=== PATIENT | female | born 1950 | race Caucasian/White ===

== ENCOUNTER 2020-10-23 13:51 | Observation (INO) ==
[2020-10-23] MEDS ORDERED: methylPREDNISolone SOD SUC 125 MG/2 ML VIAL IV STA (14:26)
[2020-10-23] MEDS ORDERED: ALBUTEROL/IPRATROPIUM 3 ML NEB RESP TX STA (14:26)
[2020-10-23 14:43] LABS: Basophils # 0.1 10*3/uL (0.0-0.2); Eosinophils # 0.1 10*3/uL (0.0-0.87); Eosinophils % 1.3 % (0.00-10.9); Hematocrit 48.4 VOL% (35.7-47.0); Hemoglobin 15.2 GM/DL (12.0-16.0); Immature Granulocytes % 0.3 %; Immature Granulocytes Absolute 0.02 #; Lymphocytes # 1.8 10*3/uL (1.4-4.0); Lymphocytes % 23.8 % (21.3-54.2); Mean Corpuscular HGB Conc 31.4 GM/DL (32-36); Mean Corpuscular Volume 88.3 FL (87-102); Mean Platelet Volume 9.9 FL (9.6-12.0); Monocytes % 10.2 % (1.7-12.7); Neutrophils % 63.4 % (38.7-73.9); Platelet Count 238 T/CUMM (130-400); Red Blood Count 5.48 MC/CUMM (3.8-5.5); Red Cell Distribution Width 13.5 % (9.3-17.3); White Blood Count 7.7 T/CUMM (4-12)
[2020-10-23 15:05] LABS: Albumin 3.6 G/DL (3.4-5.0); Bilirubin,Total 0.4 MG/DL (0.2-1.0); Calcium 9.3 MG/DL (8.5-10.1); Osmolality,Calculated 267.1 MOS/KG (273-304)
[2020-10-23] MEDS ORDERED: cefTRIAXone 1,000 MG in SODIUM CHLORIDE 0.9% 100 ML IV STA (15:47)
[2020-10-23] MEDS ORDERED: ONDANSETRON 4 MG/2 ML VIAL IV PRN (15:49)
[2020-10-23] MEDS ORDERED: ACETAMINOPHEN 325 MG TABLET PO PRN (15:49)
[2020-10-23] MEDS ORDERED: AZELASTINE NASAL 137 MCG/SPRAY 30 ML BOTTLE BOTH NARES PRN (19:17)
[2020-10-23] MEDS ORDERED: [UNRECOGNIZED DRUG - OTHER] INH PRN (19:17)
[2020-10-23] MEDS ORDERED: guaiFENesin/DM ER 600-30 MG TABLET PO PRN (19:17)
[2020-10-23] MEDS ORDERED: ALBUTEROL 2.5 MG/3 ML NEB RESP TX PRN (19:17)
[2020-10-23] MEDS ORDERED: TIOTROPIUM BROMIDE INH PRN (19:17)
[2020-10-23] MEDS ORDERED: methylPREDNISolone SOD SUC 40 MG/1 ML VIAL IV ONE (20:15)
[2020-10-23] MEDS: ALBUTEROL/IPRATROPIUM 3 ML NEB RESP TX SCH (20:15)
[2020-10-23] MEDS ORDERED: cloNIDine 0.1 MG TABLET PO PRN (20:17)
[2020-10-23] MEDS: ZALEPLON 5 MG CAPSULE PO SCH (21:13)
[2020-10-23] MEDS: DOCUSATE SODIUM 100 MG CAPSULE PO SCH (21:13)
[2020-10-23] MEDS: ATORVASTATIN 10 MG TABLET PO SCH (21:14)
[2020-10-23] MEDS: ALPRAZolam 0.5 MG TABLET PO SCH (21:14)
[2020-10-24] MEDS: ALBUTEROL/IPRATROPIUM 3 ML NEB RESP TX SCH ×4 (01:51→19:25)
[2020-10-24] MEDS: methylPREDNISolone SOD SUC 40 MG/1 ML VIAL IV SCH ×4 (05:45→21:25)
[2020-10-24] MEDS: LEVOTHYROXINE 75 MCG TABLET PO SCH (05:46)
[2020-10-24] MEDS: ASPIRIN 325 MG TABLET PO SCH (08:57)
[2020-10-24] MEDS: hydroCHLOROthiazide 12.5 MG CAPSULE PO SCH (08:58)
[2020-10-24] MEDS: DOCUSATE SODIUM 100 MG CAPSULE PO SCH ×2 (08:58→21:19)
[2020-10-24] MEDS: ESCITALOPRAM 10 MG TABLET PO SCH (08:58)
[2020-10-24] MEDS: ALPRAZolam 0.5 MG TABLET PO SCH ×2 (08:58→21:20)
[2020-10-24] MEDS ORDERED: PANTOPRAZOLE 40 MG TABLET PO SCH (09:00)
[2020-10-24] MEDS ORDERED: METOPROLOL SUCCINATE XL 25 MG TABLET PO SCH (09:00)
[2020-10-24] MEDS: amLODIPine 5 MG TABLET PO SCH (09:02)
[2020-10-24] MEDS: NEBIVOLOL 5 MG TABLET PO SCH (09:30)
[2020-10-24] MEDS: OLMESARTAN 5 MG TABLET PO SCH (09:31)
[2020-10-24] MEDS: cefTRIAXone 1,000 MG in SYRINGE 1 EACH IV SCH (09:38)
[2020-10-24] MEDS: MONTELUKAST 10 MG TABLET PO SCH (10:49)
[2020-10-24] MEDS: ALUMINUM/MAGNES/SIMETH MAX STR 30 ML UDCUP PO SCH ×3 (10:49→21:18)
[2020-10-24 11:31] LABS: Free T4 (Free Thyroxine) 1.24 NG/DL (0.76-1.46); Thyroid Stimulating Hormone 0.162 uIU/ml (0.358-3.74)
[2020-10-24] MEDS: ATORVASTATIN 10 MG TABLET PO SCH (21:19)
[2020-10-24] MEDS: ZALEPLON 5 MG CAPSULE PO SCH (21:19)
[2020-10-24] MEDS: PANTOPRAZOLE 40 MG TABLET PO SCH (21:21)
[2020-10-25] MEDS: ALBUTEROL/IPRATROPIUM 3 ML NEB RESP TX SCH ×4 (00:21→20:17)
[2020-10-25] MEDS: LEVOTHYROXINE 75 MCG TABLET PO SCH (05:57)
[2020-10-25] MEDS: methylPREDNISolone SOD SUC 40 MG/1 ML VIAL IV SCH ×3 (05:57→21:15)
[2020-10-25 06:47] LABS: Basophils % 0.1 % (0.0-0.8); Hematocrit 44.6 VOL% (35.7-47.0); Hemoglobin 14.2 GM/DL (12.0-16.0); Immature Granulocytes % 0.7 %; Immature Granulocytes Absolute 0.09 #; Lymphocytes # 0.9 10*3/uL (1.4-4.0); Lymphocytes % 6.9 % (21.3-54.2); Mean Corpuscular HGB Conc 31.8 GM/DL (32-36); Mean Corpuscular Volume 87.1 FL (87-102); Mean Platelet Volume 10.1 FL (9.6-12.0); Neutrophils % 86.3 % (38.7-73.9); Platelet Count 222 T/CUMM (130-400); Red Blood Count 5.12 MC/CUMM (3.8-5.5); Red Cell Distribution Width 13.9 % (9.3-17.3); White Blood Count 12.6 T/CUMM (4-12)
[2020-10-25 07:07] LABS: Calcium 8.6 MG/DL (8.5-10.1); Osmolality,Calculated 274.1 MOS/KG (273-304)
[2020-10-25] MEDS: amLODIPine 5 MG TABLET PO SCH (10:54)
[2020-10-25] MEDS: ALUMINUM/MAGNES/SIMETH MAX STR 30 ML UDCUP PO SCH ×4 (10:54→21:14)
[2020-10-25] MEDS: NEBIVOLOL 5 MG TABLET PO SCH (10:55)
[2020-10-25] MEDS: ESCITALOPRAM 10 MG TABLET PO SCH (10:55)
[2020-10-25] MEDS: hydroCHLOROthiazide 12.5 MG CAPSULE PO SCH (10:55)
[2020-10-25] MEDS: MONTELUKAST 10 MG TABLET PO SCH (10:55)
[2020-10-25] MEDS: PANTOPRAZOLE 40 MG TABLET PO SCH ×2 (10:55→21:15)
[2020-10-25] MEDS: DOCUSATE SODIUM 100 MG CAPSULE PO SCH ×2 (10:55→21:14)
[2020-10-25] MEDS: ALPRAZolam 0.5 MG TABLET PO SCH ×2 (10:56→21:15)
[2020-10-25] MEDS: ASPIRIN 325 MG TABLET PO SCH (10:56)
[2020-10-25] MEDS: OLMESARTAN 5 MG TABLET PO SCH (10:56)
[2020-10-25] MEDS: cefTRIAXone 1,000 MG in SYRINGE 1 EACH IV SCH (11:08)
[2020-10-25] MEDS: ZALEPLON 5 MG CAPSULE PO SCH (21:15)
[2020-10-25] MEDS: ATORVASTATIN 10 MG TABLET PO SCH (21:15)
[2020-10-26] MEDS: ALBUTEROL/IPRATROPIUM 3 ML NEB RESP TX SCH ×3 (01:38→14:01)
[2020-10-26] MEDS: methylPREDNISolone SOD SUC 40 MG/1 ML VIAL IV SCH ×2 (06:15→12:26)
[2020-10-26] MEDS: LEVOTHYROXINE 75 MCG TABLET PO SCH (06:20)
[2020-10-26] MEDS: amLODIPine 5 MG TABLET PO SCH (08:15)
[2020-10-26] MEDS: ESCITALOPRAM 10 MG TABLET PO SCH (08:15)
[2020-10-26] MEDS: ASPIRIN 325 MG TABLET PO SCH (08:15)
[2020-10-26] MEDS: hydroCHLOROthiazide 12.5 MG CAPSULE PO SCH (08:15)
[2020-10-26] MEDS: PANTOPRAZOLE 40 MG TABLET PO SCH (08:15)
[2020-10-26] MEDS: OLMESARTAN 5 MG TABLET PO SCH (08:15)
[2020-10-26] MEDS: NEBIVOLOL 5 MG TABLET PO SCH (08:16)
[2020-10-26] MEDS: MONTELUKAST 10 MG TABLET PO SCH (08:16)
[2020-10-26] MEDS: cefTRIAXone 1,000 MG in SYRINGE 1 EACH IV SCH (08:16)
[2020-10-26] MEDS: ALPRAZolam 0.5 MG TABLET PO SCH (08:16)
[2020-10-26] MEDS: DOCUSATE SODIUM 100 MG CAPSULE PO SCH (08:16)
[2020-10-26] MEDS: ALUMINUM/MAGNES/SIMETH MAX STR 30 ML UDCUP PO SCH ×2 (08:17→11:31)
[2020-10-26 13:18] VITALS: BP 160/64
== END 2020-10-26 16:35 | disposition home or self-care (01) ==
LOC: N.TELEN 13:51 → N.ED 13:51 → N.TELEN 18:28
PROVIDERS: ADMIT Family Medicine; ATTEND Family Medicine

== ENCOUNTER 2020-12-08 07:34 | Inpatient (IN) ==
[2020-12-08] MEDS ORDERED: methylPREDNISolone SOD SUC 125 MG/2 ML VIAL IV STA (07:51)
[2020-12-08] MEDS ORDERED: ALBUTEROL/IPRATROPIUM 3 ML NEB RESP TX STA (07:51)
[2020-12-08 08:21] LABS: ABG HCO3 34.4 MMOL/L (20-26); ABG Oxygen Saturation 87.3 % (95-100); ABG PCO2 56.3 MM HG (35-48); ABG PH 7.435 (7.35-7.45); ABG PO2 53.4 MM HG (80-95); ABG TCO2 32.6 MMOL/L (23-27)
[2020-12-08 08:49] LABS: Albumin 3.2 G/DL (3.4-5.0); Bilirubin,Total 0.9 MG/DL (0.2-1.0); Calcium 8.1 MG/DL (8.5-10.1); Osmolality,Calculated 209.4 MOS/KG (273-304); Total Protein 6.2 G/DL (6.4-8.2)
[2020-12-08 08:59] LABS: Potassium 2.8 MMOL/L (3.5-5.1)
[2020-12-08 09:09] LABS: Basophils % 0.3 % (0.0-0.8); Eosinophils # 0.1 10*3/uL (0.0-0.87); Eosinophils % 0.5 % (0.00-10.9); Hematocrit 39.8 VOL% (35.7-47.0); Hemoglobin 14.9 GM/DL (12.0-16.0); Immature Granulocytes % 1.7 %; Immature Granulocytes Absolute 0.26 #; Lymphocytes # 0.8 10*3/uL (1.4-4.0); Lymphocytes % 5.5 % (21.3-54.2); Mean Corpuscular HGB Conc 37.4 GM/DL (32-36); Mean Corpuscular Volume 75.2 FL (87-102); Monocytes % 8.1 % (1.7-12.7); Neutrophils % 83.9 % (38.7-73.9); Platelet Count 273 T/CUMM (130-400); Red Blood Count 5.29 MC/CUMM (3.8-5.5); White Blood Count 15.2 T/CUMM (4-12)
[2020-12-08] MEDS ORDERED: cefTRIAXone 1,000 MG in SODIUM CHLORIDE 0.9% 100 ML IV STA (09:36)
[2020-12-08] MEDS ORDERED: SODIUM CHLORIDE 0.9% 500 ML IV STA (10:05)
[2020-12-08 10:19] LABS: Bilirubin,Urine Negative (Negative); Blood, Urine Small mg/dL (Negative); Glucose,Urine (UA) Negative (Negative); Ketones,Urine Negative (Negative); Nitrite,Urine Negative (Negative); Protein,Urine 100 MG/DL; RBC,Urine 3 /HPF (0-4); Squamous Epithelial Cell,Urine Occasional /HPF (0-10); Urine Appearance CLEAR (Clear); Urine Color Yellow (Yellow); Urine Specific Gravity 1.012 (1.001-1.035); Urine Urobilinogen < 2.0 EU/DL (0.2-1.0); WBC,Urine 2 /HPF (0-6)
[2020-12-08 10:24] LABS: Calcium 8.5 MG/DL (8.5-10.1); Osmolality,Calculated 211.4 MOS/KG (273-304); Potassium 2.9 MMOL/L (3.5-5.1)
[2020-12-08] MEDS ORDERED: SODIUM CHLORIDE 0.9% 1,000 ML IV SCH (10:30)
[2020-12-08] MEDS: ALBUTEROL/IPRATROPIUM 3 ML NEB RESP TX SCH ×4 (11:00→19:49)
[2020-12-08] MEDS ORDERED: AZELASTINE NASAL 137 MCG/SPRAY 30 ML BOTTLE BOTH NARES PRN (11:17)
[2020-12-08] MEDS ORDERED: IPRATROPIUM 500 MCG/2.5 ML NEB RESP TX PRN ×2 (11:31→12:00)
[2020-12-08] MEDS ORDERED: TIOTROPIUM 18 MCG INHALATION CAP 5/BOX INH PRN (12:00)
[2020-12-08] MEDS ORDERED: ESCITALOPRAM 10 MG TABLET PO SCH (12:00)
[2020-12-08] MEDS: ALUMINUM/MAGNES/SIMETH MAX STR 30 ML UDCUP PO SCH ×3 (12:15→21:35)
[2020-12-08] MEDS ORDERED: POTASSIUM CHLORIDE RIDER 10 MEQ in PREMIX 1 EACH IV PRN (12:25)
[2020-12-08] MEDS ORDERED: AZITHROMYCIN INJ 500 MG in SODIUM CHLORIDE 0.9% 250 ML IV ONE (12:31)
[2020-12-08] MEDS ORDERED: SODIUM CHLORIDE 0.9% 250 ML IV ONE (12:58)
[2020-12-08] MEDS ORDERED: POTASSIUM CHLORIDE INJ 20 MEQ in SODIUM CHLORIDE 0.9% 1,000 ML IV SCH (13:00)
[2020-12-08] MEDS: methylPREDNISolone SOD SUC 125 MG/2 ML VIAL IV SCH ×3 (13:10→23:57)
[2020-12-08] MEDS: SODIUM CHLOR 0.9% KCL 20 MEQ 20 MEQ/1,000 ML BAG IV SCH (13:30)
[2020-12-08 13:40] LABS: Calcium 8.2 MG/DL (8.5-10.1); Osmolality,Calculated 208.6 MOS/KG (273-304); Potassium 3.1 MMOL/L (3.5-5.1)
[2020-12-08] MEDS: ENOXAPARIN 40 MG/0.4 ML SYRINGE SUBCUT SCH (13:43)
[2020-12-08 14:16] LABS: ABG Base Excess 7.2 MMOL/L (-2.5-2.5); ABG HCO3 30.5 MMOL/L (20-26); ABG Oxygen Saturation 82.3 % (95-100); ABG PH 7.258 (7.35-7.45); ABG PO2 55.8 MM HG (80-95); ABG TCO2 34.5 MMOL/L (23-27)
[2020-12-08 14:20] LABS: ABG PCO2 87.4 MM HG (35-48)
[2020-12-08 15:53] LABS: ABG Base Excess 7.7 MMOL/L (-2.5-2.5); ABG HCO3 31.4 MMOL/L (20-26); ABG Oxygen Saturation 96.9 % (95-100); ABG PH 7.322 (7.35-7.45); ABG PO2 96.7 MM HG (80-95); ABG TCO2 32.6 MMOL/L (23-27)
[2020-12-08 15:55] LABS: ABG PCO2 71.5 MM HG (35-48)
[2020-12-08 18:40] LABS: Calcium 7.7 MG/DL (8.5-10.1); Osmolality,Calculated 214.2 MOS/KG (273-304); Potassium 2.6 MMOL/L (3.5-5.1)
[2020-12-08 19:49] LABS: ABG Base Excess 8.8 MMOL/L (-2.5-2.5); ABG HCO3 32.3 MMOL/L (20-26); ABG Oxygen Saturation 90.6 % (95-100); ABG PH 7.324 (7.35-7.45); ABG PO2 63.9 MM HG (80-95); ABG TCO2 33.8 MMOL/L (23-27)
[2020-12-08] MEDS ORDERED: ROCURONIUM 100 MG/10 ML VIAL IV ONE (20:00)
[2020-12-08] MEDS ORDERED: POTASSIUM CHLORIDE INJ 50 MEQ in SODIUM CHLORIDE 0.9% 500 ML IV ONE (20:00)
[2020-12-08] MEDS ORDERED: ETOMIDATE 20 MG/10 ML VIAL IV ONE (20:00)
[2020-12-08] MEDS: ATORVASTATIN 10 MG TABLET PO SCH (21:35)
[2020-12-08] MEDS ORDERED: LORazepam 2 MG/1 ML VIAL IV PRN (21:51)
[2020-12-08 22:22] LABS: ABG Base Excess 9.7 MMOL/L (-2.5-2.5); ABG HCO3 33.3 MMOL/L (20-26); ABG Oxygen Saturation 92.3 % (95-100); ABG PCO2 46.2 MM HG (35-48); ABG PH 7.484 (7.35-7.45); ABG PO2 59.1 MM HG (80-95); ABG TCO2 29.8 MMOL/L (23-27)
[2020-12-08 22:32] LABS: Calcium 7.9 MG/DL (8.5-10.1); Osmolality,Calculated 223.5 MOS/KG (273-304); Potassium 2.9 MMOL/L (3.5-5.1)
[2020-12-08] MEDS: MIDAZOLAM 100 MG in SODIUM CHLORIDE 0.9% 80 ML IV PRN (23:59)
[2020-12-09] MEDS ORDERED: NOREPINEPHRINE 8 MG in SODIUM CHLORIDE 0.9% 242 ML IV PRN (00:33)
[2020-12-09] MEDS ORDERED: NOREPINEPHRINE 4 MG/4 ML VIAL IV ONE (00:34)
[2020-12-09] MEDS: ALBUTEROL/IPRATROPIUM 3 ML NEB RESP TX SCH ×7 (00:41→23:50)
[2020-12-09 03:33] LABS: Calcium 7.9 MG/DL (8.5-10.1); Osmolality,Calculated 224.5 MOS/KG (273-304); Potassium 3.5 MMOL/L (3.5-5.1)
[2020-12-09 03:58] LABS: ABG Base Excess 9.6 MMOL/L (-2.5-2.5); ABG HCO3 33.3 MMOL/L (20-26); ABG Oxygen Saturation 95.7 % (95-100); ABG PCO2 42.1 MM HG (35-48); ABG PH 7.511 (7.35-7.45); ABG PO2 70.2 MM HG (80-95)
[2020-12-09] MEDS: SODIUM CHLOR 0.9% KCL 20 MEQ 20 MEQ/1,000 ML BAG IV SCH (04:49)
[2020-12-09] MEDS: methylPREDNISolone SOD SUC 125 MG/2 ML VIAL IV SCH ×3 (05:32→17:35)
[2020-12-09] MEDS ORDERED: cefTRIAXone 1,000 MG in SODIUM CHLORIDE 0.9% 100 ML IV SCH (08:00)
[2020-12-09] MEDS: ALUMINUM/MAGNES/SIMETH MAX STR 30 ML UDCUP PO SCH ×4 (08:01→22:58)
[2020-12-09] MEDS: MONTELUKAST 10 MG TABLET PO SCH (08:40)
[2020-12-09] MEDS: ASPIRIN 325 MG TABLET PO SCH (08:40)
[2020-12-09] MEDS: NICOTINE 21 MG/24 HR PATCH TRANSDERM SCH (08:40)
[2020-12-09] MEDS: LEVOTHYROXINE 75 MCG TABLET PO SCH (08:40)
[2020-12-09] MEDS: PANTOPRAZOLE 40 MG VIAL IV SCH (08:44)
[2020-12-09 08:47] LABS: Basophils % 0.1 % (0.0-0.8); Hematocrit 35.3 VOL% (35.7-47.0); Hemoglobin 12.5 GM/DL (12.0-16.0); Immature Granulocytes % 1.1 %; Immature Granulocytes Absolute 0.11 #; Lymphocytes # 0.4 10*3/uL (1.4-4.0); Lymphocytes % 4.2 % (21.3-54.2); Mean Corpuscular HGB Conc 35.4 GM/DL (32-36); Mean Corpuscular Volume 77.4 FL (87-102); Mean Platelet Volume 9.1 FL (9.6-12.0); Monocytes % 5.5 % (1.7-12.7); Neutrophils % 89.1 % (38.7-73.9); Platelet Count 231 T/CUMM (130-400); Red Blood Count 4.56 MC/CUMM (3.8-5.5); Red Cell Distribution Width 12.1 % (9.3-17.3); White Blood Count 10.2 T/CUMM (4-12)
[2020-12-09 08:59] LABS: Calcium 7.8 MG/DL (8.5-10.1); Potassium 3.3 MMOL/L (3.5-5.1)
[2020-12-09 09:31] LABS: Calcium 7.9 MG/DL (8.5-10.1); Osmolality,Calculated 231.9 MOS/KG (273-304); Potassium 3.4 MMOL/L (3.5-5.1)
[2020-12-09] MEDS: [UNRECOGNIZED DRUG - OTHER] PO SCH (09:34)
[2020-12-09] MEDS: POTASSIUM CHLORIDE 20 MEQ/15 ML UDCUP PER TUBE PRN ×3 (10:08→17:20)
[2020-12-09] MEDS: ENOXAPARIN 40 MG/0.4 ML SYRINGE SUBCUT SCH (10:09)
[2020-12-09] MEDS: DEXTROSE 5% IV SCH (12:59)
[2020-12-09] MEDS: AZITHROMYCIN IV SCH (12:59)
[2020-12-09 13:07] LABS: Calcium 8.2 MG/DL (8.5-10.1); Potassium 3.9 MMOL/L (3.5-5.1)
[2020-12-09 16:38] LABS: Calcium 7.9 MG/DL (8.5-10.1); Osmolality,Calculated 233.8 MOS/KG (273-304); Potassium 3.9 MMOL/L (3.5-5.1)
[2020-12-09] MEDS: MIDAZOLAM 100 MG in SODIUM CHLORIDE 0.9% 80 ML IV PRN (17:33)
[2020-12-09 20:58] LABS: Osmolality,Calculated 244.1 MOS/KG (273-304); Potassium 3.7 MMOL/L (3.5-5.1)
[2020-12-09] MEDS: ATORVASTATIN 10 MG TABLET PO SCH (22:58)
[2020-12-10] MEDS: methylPREDNISolone SOD SUC 125 MG/2 ML VIAL IV SCH ×5 (00:16→23:47)
[2020-12-10 01:19] LABS: Calcium 8.4 MG/DL (8.5-10.1); Osmolality,Calculated 241.2 MOS/KG (273-304); Potassium 3.7 MMOL/L (3.5-5.1)
[2020-12-10] MEDS: POTASSIUM CHLORIDE 20 MEQ/15 ML UDCUP PER TUBE PRN ×2 (01:56→08:39)
[2020-12-10] MEDS: ALBUTEROL/IPRATROPIUM 3 ML NEB RESP TX SCH ×6 (02:35→23:12)
[2020-12-10 04:12] LABS: ABG Base Excess 7.8 MMOL/L (-2.5-2.5); ABG HCO3 31.3 MMOL/L (20-26); ABG Oxygen Saturation 94.1 % (95-100); ABG PH 7.512 (7.35-7.45); ABG PO2 66.9 MM HG (80-95); ABG TCO2 32.6 MMOL/L (23-27)
[2020-12-10 05:15] LABS: Basophils % 0.1 % (0.0-0.8); Hematocrit 38.6 VOL% (35.7-47.0); Hemoglobin 13.4 GM/DL (12.0-16.0); Immature Granulocytes % 0.8 %; Lymphocytes # 0.4 10*3/uL (1.4-4.0); Lymphocytes % 3.6 % (21.3-54.2); Mean Corpuscular HGB Conc 34.7 GM/DL (32-36); Mean Corpuscular Volume 80.8 FL (87-102); Mean Platelet Volume 9.6 FL (9.6-12.0); Monocytes % 4.4 % (1.7-12.7); Neutrophils % 91.1 % (38.7-73.9); Platelet Count 233 T/CUMM (130-400); Red Blood Count 4.78 MC/CUMM (3.8-5.5); Red Cell Distribution Width 12.7 % (9.3-17.3); White Blood Count 12.1 T/CUMM (4-12)
[2020-12-10 05:29] LABS: Osmolality,Calculated 247.8 MOS/KG (273-304); Potassium 3.8 MMOL/L (3.5-5.1)
[2020-12-10 05:40] LABS: Band Neutrophils 2 % (0-10); Hypochromasia Slight; Lymphocytes 5 % (20-55); Microcytosis Slight; Platelet Estimate Adequate; Segmented Neutrophils 92 % (50-85); Total Cells Counted 100
[2020-12-10] MEDS: ALUMINUM/MAGNES/SIMETH MAX STR 30 ML UDCUP PO SCH ×4 (06:36→21:05)
[2020-12-10] MEDS: PANTOPRAZOLE 40 MG VIAL IV SCH (08:38)
[2020-12-10] MEDS: NICOTINE 21 MG/24 HR PATCH TRANSDERM SCH (08:39)
[2020-12-10] MEDS: LEVOTHYROXINE 75 MCG TABLET PO SCH (08:39)
[2020-12-10] MEDS: MONTELUKAST 10 MG TABLET PO SCH (08:39)
[2020-12-10] MEDS: ASPIRIN 325 MG TABLET PO SCH (08:39)
[2020-12-10] MEDS: [UNRECOGNIZED DRUG - OTHER] PO SCH (08:51)
[2020-12-10] MEDS ORDERED: cefTRIAXone 1,000 MG in SYRINGE 1 EACH IV SCH (09:00)
[2020-12-10] MEDS: ENOXAPARIN 40 MG/0.4 ML SYRINGE SUBCUT SCH (09:58)
[2020-12-10] MEDS: PIPERACILLIN/TAZOBACTAM 3,375 MG in SODIUM CHLORIDE 0.9% 100 ML IV SCH ×2 (10:01→17:15)
[2020-12-10 10:51] LABS: Free T4 (Free Thyroxine) 1.58 NG/DL (0.76-1.46); Thyroid Stimulating Hormone 0.067 uIU/ml (0.358-3.74)
[2020-12-10] MEDS: INSULIN REGULAR 100 UNIT/ML SUBCUT SCH ×3 (12:46→23:48)
[2020-12-10 13:39] LABS: Calcium 7.7 MG/DL (8.5-10.1); Osmolality,Calculated 248.9 MOS/KG (273-304); Potassium 4.4 MMOL/L (3.5-5.1)
[2020-12-10] MEDS: DEXTROSE 5% IV SCH (13:39)
[2020-12-10] MEDS: AZITHROMYCIN IV SCH (13:39)
[2020-12-10] MEDS: ATORVASTATIN 10 MG TABLET PO SCH (21:05)
[2020-12-11] MEDS: PIPERACILLIN/TAZOBACTAM 3,375 MG in SODIUM CHLORIDE 0.9% 100 ML IV SCH ×3 (01:08→17:45)
[2020-12-11] MEDS: ALBUTEROL/IPRATROPIUM 3 ML NEB RESP TX SCH ×6 (02:50→23:25)
[2020-12-11 04:00] LABS: Basophils % 0.1 % (0.0-0.8); Hematocrit 37.1 VOL% (35.7-47.0); Hemoglobin 12.2 GM/DL (12.0-16.0); Immature Granulocytes % 0.5 %; Immature Granulocytes Absolute 0.06 #; Lymphocytes # 0.2 10*3/uL (1.4-4.0); Lymphocytes % 1.8 % (21.3-54.2); Mean Corpuscular HGB Conc 32.9 GM/DL (32-36); Mean Corpuscular Volume 82.8 FL (87-102); Monocytes % 3.6 % (1.7-12.7); Platelet Count 244 T/CUMM (130-400); Red Blood Count 4.48 MC/CUMM (3.8-5.5); Red Cell Distribution Width 13.2 % (9.3-17.3); White Blood Count 11.6 T/CUMM (4-12)
[2020-12-11 04:01] LABS: ABG Base Excess 9.6 MMOL/L (-2.5-2.5); ABG HCO3 33.3 MMOL/L (20-26); ABG Oxygen Saturation 96.7 % (95-100); ABG PCO2 47.6 MM HG (35-48); ABG PH 7.472 (7.35-7.45); ABG PO2 79.3 MM HG (80-95); ABG TCO2 30.4 MMOL/L (23-27); Allen Test Positive; Pt O2 Delivery Device Ventilator
[2020-12-11 04:12] LABS: Calcium 7.6 MG/DL (8.5-10.1); Osmolality,Calculated 260.4 MOS/KG (273-304)
[2020-12-11 04:26] LABS: Band Neutrophils 1 % (0-10); Hypochromasia Slight; Lymphocytes 2 % (20-55); Microcytosis Slight; Platelet Estimate Adequate; Segmented Neutrophils 91 % (50-85); Total Cells Counted 100
[2020-12-11] MEDS: methylPREDNISolone SOD SUC 125 MG/2 ML VIAL IV SCH ×4 (05:40→23:35)
[2020-12-11] MEDS: INSULIN REGULAR 100 UNIT/ML SUBCUT SCH ×4 (05:41→23:35)
[2020-12-11] MEDS: PANTOPRAZOLE 40 MG VIAL IV SCH (08:23)
[2020-12-11] MEDS: LEVOTHYROXINE 75 MCG TABLET PO SCH (08:23)
[2020-12-11] MEDS: [UNRECOGNIZED DRUG - OTHER] PO SCH (08:23)
[2020-12-11] MEDS: MONTELUKAST 10 MG TABLET PO SCH (08:23)
[2020-12-11] MEDS: NICOTINE 21 MG/24 HR PATCH TRANSDERM SCH (08:23)
[2020-12-11] MEDS: ALUMINUM/MAGNES/SIMETH MAX STR 30 ML UDCUP PO SCH ×4 (08:23→21:07)
[2020-12-11] MEDS: ASPIRIN 325 MG TABLET PO SCH (08:23)
[2020-12-11] MEDS: ENOXAPARIN 40 MG/0.4 ML SYRINGE SUBCUT SCH (09:30)
[2020-12-11] MEDS ORDERED: SODIUM PHOSPHATE INJ 40 MMOL in SODIUM CHLORIDE 0.9% 250 ML IV ONE (11:00)
[2020-12-11] MEDS: DEXTROSE 5% IV SCH (13:49)
[2020-12-11] MEDS: AZITHROMYCIN IV SCH (13:49)
[2020-12-11] MEDS: MIDAZOLAM 100 MG in SODIUM CHLORIDE 0.9% 80 ML IV PRN (18:28)
[2020-12-11] MEDS: ATORVASTATIN 10 MG TABLET PO SCH (21:07)
[2020-12-12] MEDS: PIPERACILLIN/TAZOBACTAM 3,375 MG in SODIUM CHLORIDE 0.9% 100 ML IV SCH ×3 (01:27→19:03)
[2020-12-12] MEDS: ALBUTEROL/IPRATROPIUM 3 ML NEB RESP TX SCH ×6 (04:05→23:10)
[2020-12-12 04:45] LABS: Basophils % 0.1 % (0.0-0.8); Hematocrit 36.3 VOL% (35.7-47.0); Hemoglobin 11.9 GM/DL (12.0-16.0); Immature Granulocytes % 1.5 %; Immature Granulocytes Absolute 0.13 #; Lymphocytes # 0.3 10*3/uL (1.4-4.0); Lymphocytes % 3.6 % (21.3-54.2); Mean Corpuscular HGB Conc 32.8 GM/DL (32-36); Mean Platelet Volume 8.9 FL (9.6-12.0); NRBC # 0.02 10*3/uL; Neutrophils % 90.8 % (38.7-73.9); Platelet Count 247 T/CUMM (130-400); Red Blood Count 4.32 MC/CUMM (3.8-5.5); Red Cell Distribution Width 13.7 % (9.3-17.3)
[2020-12-12 04:52] LABS: ABG Base Excess 10.1 MMOL/L (-2.5-2.5); ABG HCO3 33.7 MMOL/L (20-26); ABG Oxygen Saturation 92.6 % (95-100); ABG PH 7.488 (7.35-7.45); ABG PO2 60.9 MM HG (80-95); ABG TCO2 30.7 MMOL/L (23-27); Allen Test Positive; Pt O2 Delivery Device Ventilator
[2020-12-12 05:08] LABS: Hypochromasia Slight; Lymphocytes 3 % (20-55); Microcytosis Slight; Nucleated Red Blood Cells 1 (0-5); Platelet Estimate Adequate; Segmented Neutrophils 93 % (50-85); Total Cells Counted 100
[2020-12-12 05:09] LABS: Calcium 7.8 MG/DL (8.5-10.1); Osmolality,Calculated 269.7 MOS/KG (273-304); Potassium 4.5 MMOL/L (3.5-5.1)
[2020-12-12] MEDS: methylPREDNISolone SOD SUC 125 MG/2 ML VIAL IV SCH ×2 (05:40→19:06)
[2020-12-12] MEDS: INSULIN REGULAR 100 UNIT/ML SUBCUT SCH ×3 (05:40→18:47)
[2020-12-12] MEDS: MONTELUKAST 10 MG TABLET PO SCH (08:20)
[2020-12-12] MEDS: ASPIRIN 325 MG TABLET PO SCH (08:20)
[2020-12-12] MEDS: NICOTINE 21 MG/24 HR PATCH TRANSDERM SCH (08:20)
[2020-12-12] MEDS: PANTOPRAZOLE 40 MG VIAL IV SCH (08:24)
[2020-12-12] MEDS: ALUMINUM/MAGNES/SIMETH MAX STR 30 ML UDCUP PO SCH ×4 (08:40→20:27)
[2020-12-12] MEDS: [UNRECOGNIZED DRUG - OTHER] PO SCH (08:41)
[2020-12-12] MEDS: ENOXAPARIN 40 MG/0.4 ML SYRINGE SUBCUT SCH (10:45)
[2020-12-12] MEDS: OLMESARTAN 5 MG TABLET NG SCH (12:01)
[2020-12-12] MEDS: DEXTROSE 5% IV SCH (15:00)
[2020-12-12] MEDS: AZITHROMYCIN IV SCH (15:00)
[2020-12-12] MEDS: ATORVASTATIN 10 MG TABLET PO SCH (20:13)
[2020-12-13] MEDS: INSULIN REGULAR 100 UNIT/ML SUBCUT SCH ×4 (00:26→17:57)
[2020-12-13] MEDS: PIPERACILLIN/TAZOBACTAM 3,375 MG in SODIUM CHLORIDE 0.9% 100 ML IV SCH ×3 (01:38→18:04)
[2020-12-13 02:59] LABS: Basophils % 0.1 % (0.0-0.8); Hematocrit 36.5 VOL% (35.7-47.0); Hemoglobin 12.1 GM/DL (12.0-16.0); Immature Granulocytes % 1.8 %; Immature Granulocytes Absolute 0.18 #; Lymphocytes # 0.4 10*3/uL (1.4-4.0); Lymphocytes % 4.2 % (21.3-54.2); Mean Corpuscular HGB Conc 33.2 GM/DL (32-36); Mean Corpuscular Volume 84.9 FL (87-102); Mean Platelet Volume 8.8 FL (9.6-12.0); Monocytes % 5.9 % (1.7-12.7); Platelet Count 227 T/CUMM (130-400); Red Cell Distribution Width 14.3 % (9.3-17.3); White Blood Count 9.9 T/CUMM (4-12)
[2020-12-13] MEDS: ALBUTEROL/IPRATROPIUM 3 ML NEB RESP TX SCH ×6 (03:02→23:05)
[2020-12-13 03:16] LABS: Calcium 8.1 MG/DL (8.5-10.1); Osmolality,Calculated 268.7 MOS/KG (273-304); Potassium 4.8 MMOL/L (3.5-5.1)
[2020-12-13 03:29] LABS: Lymphocytes 9 % (20-55); Nucleated Red Blood Cells 1 (0-5); Platelet Estimate Normal; Segmented Neutrophils 83 % (50-85); Total Cells Counted 100
[2020-12-13 03:40] LABS: ABG Base Excess 8.9 MMOL/L (-2.5-2.5); ABG HCO3 32.6 MMOL/L (20-26); ABG PCO2 46.1 MM HG (35-48); ABG PH 7.474 (7.35-7.45); ABG PO2 76.3 MM HG (80-95); ABG TCO2 29.5 MMOL/L (23-27)
[2020-12-13] MEDS: methylPREDNISolone SOD SUC 125 MG/2 ML VIAL IV SCH ×2 (05:07→18:10)
[2020-12-13] MEDS: ALUMINUM/MAGNES/SIMETH MAX STR 30 ML UDCUP PO SCH ×4 (07:43→20:29)
[2020-12-13] MEDS: OLMESARTAN 5 MG TABLET NG SCH (08:45)
[2020-12-13] MEDS: MONTELUKAST 10 MG TABLET PO SCH (08:45)
[2020-12-13] MEDS: ASPIRIN 325 MG TABLET PO SCH (08:45)
[2020-12-13] MEDS: NICOTINE 21 MG/24 HR PATCH TRANSDERM SCH (08:46)
[2020-12-13] MEDS: PANTOPRAZOLE 40 MG VIAL IV SCH (08:47)
[2020-12-13] MEDS: [UNRECOGNIZED DRUG - OTHER] PO SCH (09:25)
[2020-12-13] MEDS: ENOXAPARIN 40 MG/0.4 ML SYRINGE SUBCUT SCH (10:04)
[2020-12-13] MEDS ORDERED: FUROSEMIDE 20 MG/2 ML VIAL IV ONE (11:16)
[2020-12-13] MEDS ORDERED: OLMESARTAN 5 MG TABLET NG ONE (11:17)
[2020-12-13] MEDS ORDERED: OLMESARTAN 5 MG TABLET PO ONE (11:17)
[2020-12-13] MEDS: ATORVASTATIN 10 MG TABLET PO SCH (20:29)
[2020-12-14] MEDS: INSULIN REGULAR 100 UNIT/ML SUBCUT SCH ×5 (00:59→21:25)
[2020-12-14] MEDS: ALBUTEROL/IPRATROPIUM 3 ML NEB RESP TX SCH ×6 (02:50→23:40)
[2020-12-14] MEDS: PIPERACILLIN/TAZOBACTAM 3,375 MG in SODIUM CHLORIDE 0.9% 100 ML IV SCH ×2 (03:19→10:32)
[2020-12-14 03:36] LABS: ABG Base Excess 9.1 MMOL/L (-2.5-2.5); ABG HCO3 32.8 MMOL/L (20-26); ABG Oxygen Saturation 96.4 % (95-100); ABG PCO2 34.3 MM HG (35-48); ABG PO2 72.9 MM HG (80-95); ABG TCO2 27.1 MMOL/L (23-27); Pt O2 Delivery Device Ventilator
[2020-12-14 05:53] LABS: Basophils % 0.3 % (0.0-0.8); Hematocrit 38.4 VOL% (35.7-47.0); Hemoglobin 12.8 GM/DL (12.0-16.0); Immature Granulocytes Absolute 0.48 #; Lymphocytes # 0.4 10*3/uL (1.4-4.0); Lymphocytes % 4.6 % (21.3-54.2); Mean Corpuscular HGB Conc 33.3 GM/DL (32-36); Mean Corpuscular Volume 83.1 FL (87-102); Mean Platelet Volume 9.1 FL (9.6-12.0); Monocytes % 7.5 % (1.7-12.7); Neutrophils % 82.6 % (38.7-73.9); Platelet Count 239 T/CUMM (130-400); Red Blood Count 4.62 MC/CUMM (3.8-5.5); Red Cell Distribution Width 14.2 % (9.3-17.3); White Blood Count 9.7 T/CUMM (4-12)
[2020-12-14 06:18] LABS: Hypochromasia 1+; Lymphocytes 3 % (20-55); Microcytosis 1+; Platelet Estimate Adequate; Segmented Neutrophils 90 % (50-85); Total Cells Counted 100
[2020-12-14 06:21] LABS: Calcium 8.5 MG/DL (8.5-10.1); Osmolality,Calculated 275.1 MOS/KG (273-304); Potassium 3.6 MMOL/L (3.5-5.1)
[2020-12-14] MEDS: methylPREDNISolone SOD SUC 125 MG/2 ML VIAL IV SCH (06:32)
[2020-12-14] MEDS: [UNRECOGNIZED DRUG - OTHER] PO SCH (08:16)
[2020-12-14] MEDS: POTASSIUM CHLORIDE 20 MEQ/15 ML UDCUP PER TUBE PRN ×2 (08:34→10:26)
[2020-12-14] MEDS: ESCITALOPRAM 10 MG TABLET PO SCH (08:35)
[2020-12-14] MEDS: ALPRAZolam 0.5 MG TABLET PO SCH ×2 (08:35→21:26)
[2020-12-14] MEDS: ALUMINUM/MAGNES/SIMETH MAX STR 30 ML UDCUP PO SCH ×5 (08:35→21:26)
[2020-12-14] MEDS: ASPIRIN 325 MG TABLET PO SCH (08:36)
[2020-12-14] MEDS: NICOTINE 21 MG/24 HR PATCH TRANSDERM SCH (08:36)
[2020-12-14] MEDS: MONTELUKAST 10 MG TABLET PO SCH (08:36)
[2020-12-14] MEDS: PANTOPRAZOLE 40 MG VIAL IV SCH (08:39)
[2020-12-14] MEDS ORDERED: OLMESARTAN 5 MG TABLET PO SCH (09:00)
[2020-12-14] MEDS ORDERED: OLMESARTAN 5 MG TABLET NG ONE (09:46)
[2020-12-14] MEDS ORDERED: ALPRAZolam 0.5 MG TABLET PO PRN (09:49)
[2020-12-14] MEDS: methylPREDNISolone SOD SUC 40 MG/1 ML VIAL IV SCH ×2 (10:24→21:23)
[2020-12-14] MEDS: ENOXAPARIN 40 MG/0.4 ML SYRINGE SUBCUT SCH (10:25)
[2020-12-14 13:06] LABS: EBV Nuclear Ag Antibody Negative (Negative); EBV Virus IgG Ab Positive (Negative); EBV Virus IgM Ab Negative (Negative)
[2020-12-14 13:38] LABS: ABG Base Excess 5.6 MMOL/L (-2.5-2.5); ABG HCO3 29.1 MMOL/L (20-26); ABG Oxygen Saturation 85.7 % (95-100); ABG PCO2 46.8 MM HG (35-48); ABG PH 7.429 (7.35-7.45); ABG TCO2 26.9 MMOL/L (23-27); Allen Test Positive
[2020-12-14] MEDS ORDERED: PHENOL 1.4% THROAT SPRAY 177 ML BOTTLE PO PRN (14:15)
[2020-12-14] MEDS: ATORVASTATIN 10 MG TABLET PO SCH (21:26)
[2020-12-15] MEDS: ALBUTEROL/IPRATROPIUM 3 ML NEB RESP TX SCH ×6 (03:10→23:28)
[2020-12-15 04:25] LABS: ABG Base Excess 5.9 MMOL/L (-2.5-2.5); ABG HCO3 29.5 MMOL/L (20-26); ABG PCO2 37.5 MM HG (35-48); ABG PH 7.501 (7.35-7.45); ABG PO2 55.1 MM HG (80-95); ABG TCO2 25.2 MMOL/L (23-27); Allen Test Positive; Pt O2 Delivery Device Other
[2020-12-15] MEDS ORDERED: LORazepam 2 MG/1 ML VIAL IV PRN (05:25)
[2020-12-15 05:28] LABS: Basophils % 0.3 % (0.0-0.8); Hematocrit 40.6 VOL% (35.7-47.0); Hemoglobin 13.3 GM/DL (12.0-16.0); Immature Granulocytes % 5.8 %; Immature Granulocytes Absolute 0.66 #; Lymphocytes # 0.6 10*3/uL (1.4-4.0); Lymphocytes % 4.9 % (21.3-54.2); Mean Corpuscular HGB Conc 32.8 GM/DL (32-36); Mean Corpuscular Volume 86.6 FL (87-102); Mean Platelet Volume 8.8 FL (9.6-12.0); Monocytes % 5.9 % (1.7-12.7); Neutrophils % 83.1 % (38.7-73.9); Platelet Count 235 T/CUMM (130-400); Red Blood Count 4.69 MC/CUMM (3.8-5.5); Red Cell Distribution Width 14.2 % (9.3-17.3); White Blood Count 11.3 T/CUMM (4-12)
[2020-12-15 05:59] LABS: Calcium 8.5 MG/DL (8.5-10.1); Potassium 4.1 MMOL/L (3.5-5.1)
[2020-12-15] MEDS: LEVOTHYROXINE 50 MCG TABLET PO SCH (06:42)
[2020-12-15 06:43] LABS: Lymphocytes 9 % (20-55); Segmented Neutrophils 89 % (50-85); Total Cells Counted 100
[2020-12-15 06:44] LABS: Atypical Lymphocytes Few; Platelet Estimate Adequate; Reactive Lymphocytes Few
[2020-12-15] MEDS: methylPREDNISolone SOD SUC 40 MG/1 ML VIAL IV SCH ×2 (08:24→16:59)
[2020-12-15] MEDS: ALUMINUM/MAGNES/SIMETH MAX STR 30 ML UDCUP PO SCH ×4 (08:24→20:15)
[2020-12-15] MEDS: PANTOPRAZOLE 40 MG VIAL IV SCH (08:24)
[2020-12-15] MEDS: NICOTINE 21 MG/24 HR PATCH TRANSDERM SCH (08:24)
[2020-12-15] MEDS: [UNRECOGNIZED DRUG - OTHER] PO SCH (08:25)
[2020-12-15] MEDS: MONTELUKAST 10 MG TABLET PO SCH (08:25)
[2020-12-15] MEDS: OLMESARTAN 20 MG TABLET NG SCH (08:25)
[2020-12-15] MEDS: ASPIRIN 325 MG TABLET PO SCH (08:25)
[2020-12-15] MEDS: ALPRAZolam 0.5 MG TABLET PO SCH (08:25)
[2020-12-15] MEDS: ESCITALOPRAM 10 MG TABLET PO SCH (08:25)
[2020-12-15] MEDS: acetaZOLAMIDE 250 MG TABLET PO SCH (08:27)
[2020-12-15] MEDS: INSULIN REGULAR 100 UNIT/ML SUBCUT SCH ×4 (08:48→20:41)
[2020-12-15] MEDS: ENOXAPARIN 40 MG/0.4 ML SYRINGE SUBCUT SCH (09:31)
[2020-12-15] MEDS: BUDESONIDE 0.5 MG/2 ML NEB RESP TX SCH ×2 (10:38→19:28)
[2020-12-15] MEDS ORDERED: ALPRAZolam 0.25 MG TABLET PO ONE (15:22)
[2020-12-15] MEDS: ALPRAZolam 0.25 MG TABLET PO SCH (20:15)
[2020-12-15] MEDS: ATORVASTATIN 10 MG TABLET PO SCH (20:15)
[2020-12-16] MEDS: methylPREDNISolone SOD SUC 40 MG/1 ML VIAL IV SCH ×3 (01:40→17:02)
[2020-12-16] MEDS: ALBUTEROL/IPRATROPIUM 3 ML NEB RESP TX SCH ×6 (03:43→23:49)
[2020-12-16 04:31] LABS: ABG Base Excess 2.2 MMOL/L (-2.5-2.5); ABG HCO3 26.2 MMOL/L (20-26); ABG Oxygen Saturation 92.8 % (95-100); ABG PCO2 43.3 MM HG (35-48); ABG PH 7.407 (7.35-7.45); ABG PO2 67.8 MM HG (80-95); ABG TCO2 23.6 MMOL/L (23-27); Allen Test Positive; Pt O2 Delivery Device CPAP
[2020-12-16 06:21] LABS: Basophils % 0.2 % (0.0-0.8); Hematocrit 40.9 VOL% (35.7-47.0); Hemoglobin 13.5 GM/DL (12.0-16.0); Immature Granulocytes % 5.8 %; Lymphocytes # 0.4 10*3/uL (1.4-4.0); Lymphocytes % 3.6 % (21.3-54.2); Mean Corpuscular Volume 83.6 FL (87-102); Mean Platelet Volume 8.9 FL (9.6-12.0); NRBC # 0.02 10*3/uL; Neutrophils % 86.4 % (38.7-73.9); Platelet Count 224 T/CUMM (130-400); Red Blood Count 4.89 MC/CUMM (3.8-5.5); Red Cell Distribution Width 14.1 % (9.3-17.3); White Blood Count 10.4 T/CUMM (4-12)
[2020-12-16 06:41] LABS: Calcium 8.8 MG/DL (8.5-10.1); Osmolality,Calculated 276.8 MOS/KG (273-304); Potassium 3.9 MMOL/L (3.5-5.1)
[2020-12-16] MEDS: LEVOTHYROXINE 50 MCG TABLET PO SCH (06:44)
[2020-12-16] MEDS: BUDESONIDE 0.5 MG/2 ML NEB RESP TX SCH ×3 (07:19→23:49)
[2020-12-16] MEDS: INSULIN REGULAR 100 UNIT/ML SUBCUT SCH ×4 (09:42→20:02)
[2020-12-16] MEDS: ALUMINUM/MAGNES/SIMETH MAX STR 30 ML UDCUP PO SCH ×4 (09:42→21:24)
[2020-12-16] MEDS: ASPIRIN 325 MG TABLET PO SCH (09:43)
[2020-12-16] MEDS: ESCITALOPRAM 10 MG TABLET PO SCH (09:43)
[2020-12-16] MEDS: NICOTINE 21 MG/24 HR PATCH TRANSDERM SCH (09:43)
[2020-12-16] MEDS: OLMESARTAN 20 MG TABLET NG SCH (09:43)
[2020-12-16] MEDS: acetaZOLAMIDE 250 MG TABLET PO SCH (09:43)
[2020-12-16] MEDS: PANTOPRAZOLE 40 MG VIAL IV SCH (09:44)
[2020-12-16] MEDS: MONTELUKAST 10 MG TABLET PO SCH (09:44)
[2020-12-16] MEDS: ALPRAZolam 0.25 MG TABLET PO SCH ×2 (09:44→21:15)
[2020-12-16] MEDS: [UNRECOGNIZED DRUG - OTHER] PO SCH (09:44)
[2020-12-16 09:47] LABS: Lymphocytes 5 % (20-55); Metamyelocytes 3 %; Platelet Estimate Normal; Segmented Neutrophils 90 % (50-85); Total Cells Counted 100
[2020-12-16] MEDS: CHOLESTYRAMINE 4 GM PACK PO SCH ×2 (10:26→21:24)
[2020-12-16] MEDS: ENOXAPARIN 40 MG/0.4 ML SYRINGE SUBCUT SCH (10:26)
[2020-12-16] MEDS: ATORVASTATIN 10 MG TABLET PO SCH (21:15)
[2020-12-17] MEDS: methylPREDNISolone SOD SUC 40 MG/1 ML VIAL IV SCH ×3 (00:15→16:56)
[2020-12-17] MEDS: ALBUTEROL/IPRATROPIUM 3 ML NEB RESP TX SCH ×5 (03:40→20:10)
[2020-12-17 06:11] LABS: Basophils % 0.3 % (0.0-0.8); Hematocrit 38.2 VOL% (35.7-47.0); Hemoglobin 12.6 GM/DL (12.0-16.0); Lymphocytes # 0.7 10*3/uL (1.4-4.0); Lymphocytes % 7.4 % (21.3-54.2); Mean Corpuscular Volume 85.1 FL (87-102); Mean Platelet Volume 9.1 FL (9.6-12.0); Monocytes % 6.1 % (1.7-12.7); Neutrophils % 83.2 % (38.7-73.9); Platelet Count 210 T/CUMM (130-400); Red Blood Count 4.49 MC/CUMM (3.8-5.5); Red Cell Distribution Width 14.2 % (9.3-17.3); White Blood Count 10.1 T/CUMM (4-12)
[2020-12-17 06:25] LABS: Calcium 8.3 MG/DL (8.5-10.1); Osmolality,Calculated 278.5 MOS/KG (273-304); Potassium 3.4 MMOL/L (3.5-5.1)
[2020-12-17] MEDS: LEVOTHYROXINE 50 MCG TABLET PO SCH (06:25)
[2020-12-17] MEDS: BUDESONIDE 0.5 MG/2 ML NEB RESP TX SCH ×2 (07:25→20:10)
[2020-12-17] MEDS ORDERED: amLODIPine 5 MG TABLET PO SCH (09:00)
[2020-12-17] MEDS: INSULIN REGULAR 100 UNIT/ML SUBCUT SCH ×4 (09:05→20:30)
[2020-12-17 09:37] LABS: ABG Base Excess 2.6 MMOL/L (-2.5-2.5); ABG HCO3 26.5 MMOL/L (20-26); ABG Oxygen Saturation 89.1 % (95-100); ABG PCO2 37.1 MM HG (35-48); ABG PH 7.459 (7.35-7.45); ABG PO2 55.5 MM HG (80-95); ABG TCO2 22.9 MMOL/L (23-27)
[2020-12-17] MEDS: ALUMINUM/MAGNES/SIMETH MAX STR 30 ML UDCUP PO SCH ×4 (09:50→21:48)
[2020-12-17] MEDS: PANTOPRAZOLE 40 MG VIAL IV SCH (09:51)
[2020-12-17] MEDS: ENOXAPARIN 40 MG/0.4 ML SYRINGE SUBCUT SCH (09:51)
[2020-12-17] MEDS: NICOTINE 21 MG/24 HR PATCH TRANSDERM SCH (09:52)
[2020-12-17] MEDS: CHOLESTYRAMINE 4 GM PACK PO SCH ×2 (09:52→21:49)
[2020-12-17] MEDS: ALPRAZolam 0.25 MG TABLET PO SCH ×2 (09:53→21:50)
[2020-12-17] MEDS: LACTOBACILLUS ACIDOPHILUS/BULGARICUS CAPLET PO SCH (09:53)
[2020-12-17] MEDS: OLMESARTAN 20 MG TABLET NG SCH (09:53)
[2020-12-17] MEDS: ESCITALOPRAM 10 MG TABLET PO SCH (09:53)
[2020-12-17] MEDS: MONTELUKAST 10 MG TABLET PO SCH (09:53)
[2020-12-17] MEDS: acetaZOLAMIDE 250 MG TABLET PO SCH (09:53)
[2020-12-17] MEDS: ASPIRIN 325 MG TABLET PO SCH (09:53)
[2020-12-17] MEDS: [UNRECOGNIZED DRUG - OTHER] PO SCH (09:54)
[2020-12-17] MEDS: THEOPHYLLINE ER 300 MG TABLET PO SCH ×2 (11:29→21:50)
[2020-12-17] MEDS ORDERED: POTASSIUM CHLORIDE 20 MEQ TABLET PO ONE (13:03)
[2020-12-17] MEDS ORDERED: LOPERAMIDE 2 MG CAPSULE PO ONE (13:30)
[2020-12-17] MEDS ORDERED: LOPERAMIDE 2 MG CAPSULE PO PRN (13:31)
[2020-12-17] MEDS: ATORVASTATIN 10 MG TABLET PO SCH (21:49)
[2020-12-18] MEDS: ALBUTEROL/IPRATROPIUM 3 ML NEB RESP TX SCH ×5 (00:15→22:45)
[2020-12-18] MEDS: methylPREDNISolone SOD SUC 40 MG/1 ML VIAL IV SCH ×3 (05:04→17:20)
[2020-12-18 05:34] LABS: Basophils % 0.1 % (0.0-0.8); Hematocrit 39.9 VOL% (35.7-47.0); Hemoglobin 13.1 GM/DL (12.0-16.0); Immature Granulocytes % 1.5 %; Immature Granulocytes Absolute 0.21 #; Lymphocytes # 0.6 10*3/uL (1.4-4.0); Lymphocytes % 4.1 % (21.3-54.2); Mean Corpuscular HGB Conc 32.8 GM/DL (32-36); Mean Corpuscular Volume 85.8 FL (87-102); Mean Platelet Volume 9.3 FL (9.6-12.0); Monocytes % 4.6 % (1.7-12.7); Neutrophils % 89.7 % (38.7-73.9); Platelet Count 201 T/CUMM (130-400); Red Blood Count 4.65 MC/CUMM (3.8-5.5); Red Cell Distribution Width 14.3 % (9.3-17.3); White Blood Count 13.8 T/CUMM (4-12)
[2020-12-18 06:04] LABS: Hypochromasia Slight; Lymphocytes 8 % (20-55); Platelet Estimate Adequate; Segmented Neutrophils 91 % (50-85); Total Cells Counted 100
[2020-12-18] MEDS: LEVOTHYROXINE 50 MCG TABLET PO SCH (06:18)
[2020-12-18] MEDS ORDERED: PANTOPRAZOLE 40 MG TABLET PO SCH (06:30)
[2020-12-18 06:35] LABS: Calcium 8.4 MG/DL (8.5-10.1); Osmolality,Calculated 278.5 MOS/KG (273-304)
[2020-12-18] MEDS: BUDESONIDE 0.5 MG/2 ML NEB RESP TX SCH ×2 (06:55→22:45)
[2020-12-18] MEDS: INSULIN REGULAR 100 UNIT/ML SUBCUT SCH ×3 (07:51→15:57)
[2020-12-18] MEDS: ALUMINUM/MAGNES/SIMETH MAX STR 30 ML UDCUP PO SCH ×4 (08:36→22:44)
[2020-12-18] MEDS: ENOXAPARIN 40 MG/0.4 ML SYRINGE SUBCUT SCH ×2 (08:37→09:42)
[2020-12-18] MEDS: NICOTINE 21 MG/24 HR PATCH TRANSDERM SCH (08:39)
[2020-12-18] MEDS: CHOLESTYRAMINE 4 GM PACK PO SCH ×2 (08:39→22:45)
[2020-12-18] MEDS: LACTOBACILLUS ACIDOPHILUS/BULGARICUS CAPLET PO SCH (08:40)
[2020-12-18] MEDS: MONTELUKAST 10 MG TABLET PO SCH (08:40)
[2020-12-18] MEDS: ALPRAZolam 0.25 MG TABLET PO SCH (08:40)
[2020-12-18] MEDS: ESCITALOPRAM 10 MG TABLET PO SCH (08:40)
[2020-12-18] MEDS: ASPIRIN 325 MG TABLET PO SCH (08:40)
[2020-12-18] MEDS: OLMESARTAN 20 MG TABLET NG SCH (08:41)
[2020-12-18] MEDS: NEBIVOLOL 5 MG TABLET PO SCH (08:41)
[2020-12-18] MEDS: acetaZOLAMIDE 250 MG TABLET PO SCH (08:41)
[2020-12-18] MEDS: THEOPHYLLINE ER 300 MG TABLET PO SCH ×2 (08:41→22:45)
[2020-12-18] MEDS: [UNRECOGNIZED DRUG - OTHER] PO SCH (08:42)
[2020-12-18] MEDS ORDERED: amLODIPine 2.5 MG TABLET PO SCH (09:00)
[2020-12-18] MEDS ORDERED: amLODIPine 2.5 MG TABLET PO ONE (10:29)
[2020-12-18] MEDS ORDERED: ALPRAZolam 0.25 MG TABLET PO SCH (15:00)
[2020-12-18] MEDS ORDERED: ALPRAZolam 0.5 MG TABLET PO SCH (21:00)
[2020-12-18] MEDS: ATORVASTATIN 10 MG TABLET PO SCH (22:45)
[2020-12-19] MEDS: ALBUTEROL/IPRATROPIUM 3 ML NEB RESP TX SCH ×7 (00:55→23:48)
[2020-12-19] MEDS ORDERED: RACEPINEPHRINE 0.5 ML NEB RESP TX ONE ×2 (01:23→01:24)
[2020-12-19] MEDS ORDERED: ROCURONIUM 100 MG/10 ML VIAL IV ONE ×2 (01:26→01:37)
[2020-12-19] MEDS ORDERED: ETOMIDATE 20 MG/10 ML VIAL IV ONE ×2 (01:26→01:36)
[2020-12-19 01:53] LABS: Basophils # 0.1 10*3/uL (0.0-0.2); Basophils % 0.3 % (0.0-0.8); Hematocrit 42.4 VOL% (35.7-47.0); Hemoglobin 13.7 GM/DL (12.0-16.0); Immature Granulocytes % 3.2 %; Immature Granulocytes Absolute 0.79 #; Lymphocytes # 1.8 10*3/uL (1.4-4.0); Lymphocytes % 7.1 % (21.3-54.2); Mean Corpuscular HGB Conc 32.3 GM/DL (32-36); Mean Corpuscular Volume 87.1 FL (87-102); Mean Platelet Volume 9.3 FL (9.6-12.0); Monocytes % 4.1 % (1.7-12.7); NRBC # 0.04 10*3/uL; Neutrophils % 85.3 % (38.7-73.9); Platelet Count 231 T/CUMM (130-400); Red Blood Count 4.87 MC/CUMM (3.8-5.5); Red Cell Distribution Width 14.6 % (9.3-17.3); White Blood Count 24.9 T/CUMM (4-12)
[2020-12-19 02:12] LABS: ABG Base Excess -1.9 MMOL/L (-2.5-2.5); ABG HCO3 24.9 MMOL/L (20-26); ABG Oxygen Saturation 99.1 % (95-100); ABG PH 7.307 (7.35-7.45); ABG PO2 192.4 MM HG (80-95); ABG TCO2 26.5 MMOL/L (23-27)
[2020-12-19 02:19] LABS: Bilirubin,Total 0.5 MG/DL (0.2-1.0); Calcium 8.4 MG/DL (8.5-10.1); Osmolality,Calculated 284.3 MOS/KG (273-304); Potassium 3.8 MMOL/L (3.5-5.1); Total Protein 5.7 G/DL (6.4-8.2)
[2020-12-19] MEDS ORDERED: AMIODARONE 150 MG/3 ML VIAL ONE ×2 (02:26→02:29)
[2020-12-19] MEDS ORDERED: AMIODARONE INJ 450 MG in DEXTROSE 5% 241 ML IV SCH (02:35)
[2020-12-19] MEDS: INSULIN REGULAR 100 UNIT/ML SUBCUT SCH ×4 (03:29→17:40)
[2020-12-19] MEDS: methylPREDNISolone SOD SUC 40 MG/1 ML VIAL IV SCH ×3 (03:30→16:10)
[2020-12-19] MEDS ORDERED: methylPREDNISolone SOD SUC 40 MG/1 ML VIAL ONE (03:37)
[2020-12-19 04:58] LABS: Band Neutrophils 1 % (0-10); Hypochromasia 1+; Lymphocytes 3 % (20-55); Metamyelocytes 2 %; Polychromasia Slight; Segmented Neutrophils 93 % (50-85); Total Cells Counted 100
[2020-12-19 04:59] LABS: Microcytosis 1+
[2020-12-19] MEDS: LEVOTHYROXINE 50 MCG TABLET PO SCH (05:47)
[2020-12-19] MEDS: BUDESONIDE 0.5 MG/2 ML NEB RESP TX SCH ×2 (07:05→19:30)
[2020-12-19 07:48] LABS: ABG Base Excess 2.4 MMOL/L (-2.5-2.5); ABG HCO3 26.5 MMOL/L (20-26); ABG Oxygen Saturation 99.6 % (95-100); ABG PCO2 35.9 MM HG (35-48); ABG PH 7.465 (7.35-7.45); ABG TCO2 22.7 MMOL/L (23-27); Allen Test Positive; Pt O2 Delivery Device Ventilator
[2020-12-19 09:26] LABS: Bacteria,Urine Occasional /HPF (Few); Bilirubin,Urine Negative (Negative); Blood, Urine Moderate mg/dL (Negative); Glucose,Urine (UA) Negative (Negative); Hyaline Casts,Urine 4 /LPF (0-3); Ketones,Urine Negative (Negative); Mucus,Urine Moderate /LPF (Occasional); Nitrite,Urine Negative (Negative); Protein,Urine 30 MG/DL; RBC,Urine 133 /HPF (0-4); Squamous Epithelial Cell,Urine Occasional /HPF (0-10); Urine Appearance CLEAR (Clear); Urine Color Yellow (Yellow); Urine Specific Gravity 1.025 (1.001-1.035); Urine Urobilinogen < 2.0 EU/DL (0.2-1.0)
[2020-12-19] MEDS: amLODIPine 5 MG TABLET PO SCH (09:27)
[2020-12-19] MEDS: acetaZOLAMIDE 250 MG TABLET PO SCH (09:27)
[2020-12-19] MEDS: NEBIVOLOL 5 MG TABLET PO SCH (09:27)
[2020-12-19] MEDS: MONTELUKAST 10 MG TABLET PO SCH (09:47)
[2020-12-19] MEDS: ALUMINUM/MAGNES/SIMETH MAX STR 30 ML UDCUP PO SCH ×4 (09:47→20:49)
[2020-12-19] MEDS: ESCITALOPRAM 10 MG TABLET PO SCH (09:47)
[2020-12-19] MEDS: ASPIRIN 325 MG TABLET PO SCH (09:47)
[2020-12-19] MEDS: ENOXAPARIN 40 MG/0.4 ML SYRINGE SUBCUT SCH (09:48)
[2020-12-19] MEDS: THEOPHYLLINE ER 300 MG TABLET PO SCH (09:48)
[2020-12-19] MEDS: CHOLESTYRAMINE 4 GM PACK PO SCH ×2 (09:48→20:49)
[2020-12-19] MEDS: LACTOBACILLUS ACIDOPHILUS/BULGARICUS CAPLET PO SCH (09:48)
[2020-12-19] MEDS: OLMESARTAN 20 MG TABLET NG SCH (09:48)
[2020-12-19] MEDS: NICOTINE 21 MG/24 HR PATCH TRANSDERM SCH (09:48)
[2020-12-19] MEDS: PANTOPRAZOLE 40 MG VIAL IV SCH (09:51)
[2020-12-19] MEDS: [UNRECOGNIZED DRUG - OTHER] PO SCH (09:56)
[2020-12-19] MEDS: MIDAZOLAM 100 MG in SODIUM CHLORIDE 0.9% 80 ML IV PRN (10:07)
[2020-12-19] MEDS: CLINDAMYCIN INJ 300 MG in PREMIX 1 EACH IV SCH ×2 (11:20→18:46)
[2020-12-19 12:22] LABS: CKMB % 10.5 %
[2020-12-19 12:31] LABS: Troponin I 1.91 NG/ML (0.00-0.045)
[2020-12-19 14:14] LABS: CKMB % 6.1 %
[2020-12-19 14:17] LABS: Troponin I 1.79 NG/ML (0.00-0.045)
[2020-12-19] MEDS: ATORVASTATIN 10 MG TABLET PO SCH (20:47)
[2020-12-19] MEDS: THEOPHYLLINE 5.33 MG/ML 30 ML/BOTTLE PO SCH (22:57)
[2020-12-20] MEDS: INSULIN REGULAR 100 UNIT/ML SUBCUT SCH ×5 (00:41→23:38)
[2020-12-20] MEDS: guaiFENesin 200 MG/10 ML UDCUP PO SCH ×4 (01:03→18:18)
[2020-12-20] MEDS: methylPREDNISolone SOD SUC 40 MG/1 ML VIAL IV SCH ×3 (01:03→16:13)
[2020-12-20] MEDS: CLINDAMYCIN INJ 300 MG in PREMIX 1 EACH IV SCH ×3 (03:25→18:18)
[2020-12-20 04:36] LABS: ABG Base Excess 1.8 MMOL/L (-2.5-2.5); ABG HCO3 24.5 MMOL/L (20-26); ABG Oxygen Saturation 99.1 % (95-100); ABG PCO2 31.9 MM HG (35-48); ABG PH 7.503 (7.35-7.45); ABG PO2 223.3 MM HG (80-95); ABG TCO2 25.5 MMOL/L (23-27); Allen Test Positive; Pt O2 Delivery Device Ventilator
[2020-12-20 04:37] LABS: Hematocrit 35.5 VOL% (35.7-47.0); Immature Granulocytes % 1.2 %; Immature Granulocytes Absolute 0.13 #; Lymphocytes # 0.3 10*3/uL (1.4-4.0); Mean Corpuscular HGB Conc 32.4 GM/DL (32-36); Mean Corpuscular Volume 86.6 FL (87-102); Mean Platelet Volume 9.3 FL (9.6-12.0); Monocytes % 2.7 % (1.7-12.7); Neutrophils % 93.1 % (38.7-73.9); Red Cell Distribution Width 14.6 % (9.3-17.3)
[2020-12-20 04:39] LABS: Hemoglobin 11.5 GM/DL (12.0-16.0); Platelet Count 167 T/CUMM (130-400); White Blood Count 10.5 T/CUMM (4-12)
[2020-12-20 04:50] LABS: Hypochromasia Slight; Lymphocytes 3 % (20-55); Microcytosis Slight; Platelet Estimate Adequate; Segmented Neutrophils 94 % (50-85); Total Cells Counted 100
[2020-12-20 04:55] LABS: Calcium 7.9 MG/DL (8.5-10.1); Osmolality,Calculated 280.8 MOS/KG (273-304); Potassium 3.8 MMOL/L (3.5-5.1)
[2020-12-20] MEDS: LEVOTHYROXINE 50 MCG TABLET PO SCH (05:32)
[2020-12-20] MEDS: THEOPHYLLINE 5.33 MG/ML 30 ML/BOTTLE PO SCH ×3 (05:32→22:55)
[2020-12-20] MEDS: BUDESONIDE 0.5 MG/2 ML NEB RESP TX SCH ×2 (07:30→19:55)
[2020-12-20] MEDS: ALBUTEROL/IPRATROPIUM 3 ML NEB RESP TX SCH ×5 (07:45→23:18)
[2020-12-20] MEDS ORDERED: POTASSIUM PHOSPHATE 30 MMOL in SODIUM CHLORIDE 0.9% 250 ML IV ONE ×2 (08:21→10:00)
[2020-12-20] MEDS: ALUMINUM/MAGNES/SIMETH MAX STR 30 ML UDCUP PO SCH ×4 (08:35→20:38)
[2020-12-20] MEDS: NICOTINE 21 MG/24 HR PATCH TRANSDERM SCH (08:35)
[2020-12-20] MEDS: acetaZOLAMIDE 250 MG TABLET PO SCH (08:36)
[2020-12-20] MEDS: CHOLESTYRAMINE 4 GM PACK PO SCH ×2 (08:36→20:37)
[2020-12-20] MEDS: LACTOBACILLUS ACIDOPHILUS/BULGARICUS CAPLET PO SCH (08:37)
[2020-12-20] MEDS: NEBIVOLOL 5 MG TABLET PO SCH (08:37)
[2020-12-20] MEDS: ESCITALOPRAM 10 MG TABLET PO SCH (08:37)
[2020-12-20] MEDS: MONTELUKAST 10 MG TABLET PO SCH (08:37)
[2020-12-20] MEDS: ASPIRIN 325 MG TABLET PO SCH (08:37)
[2020-12-20] MEDS: PANTOPRAZOLE 40 MG VIAL IV SCH (08:40)
[2020-12-20] MEDS: [UNRECOGNIZED DRUG - OTHER] PO SCH (08:42)
[2020-12-20] MEDS: ENOXAPARIN 40 MG/0.4 ML SYRINGE SUBCUT SCH (11:16)
[2020-12-20] MEDS: MIDAZOLAM 100 MG in SODIUM CHLORIDE 0.9% 80 ML IV PRN (11:24)
[2020-12-20] MEDS: ATORVASTATIN 10 MG TABLET PO SCH (20:37)
[2020-12-21] MEDS: guaiFENesin 200 MG/10 ML UDCUP PO SCH ×5 (00:02→23:27)
[2020-12-21] MEDS: methylPREDNISolone SOD SUC 40 MG/1 ML VIAL IV SCH ×3 (00:29→18:22)
[2020-12-21] MEDS: CLINDAMYCIN INJ 300 MG in PREMIX 1 EACH IV SCH (03:28)
[2020-12-21 04:32] LABS: ABG PCO2 31.1 MM HG (35-48); ABG PH 7.468 (7.35-7.45); Allen Test Positive; Pt O2 Delivery Device Ventilator
[2020-12-21] MEDS: THEOPHYLLINE 5.33 MG/ML 30 ML/BOTTLE PO SCH ×2 (06:03→15:33)
[2020-12-21] MEDS: LEVOTHYROXINE 50 MCG TABLET PO SCH (06:03)
[2020-12-21] MEDS: INSULIN REGULAR 100 UNIT/ML SUBCUT SCH ×4 (06:12→23:56)
[2020-12-21 06:22] LABS: Basophils % 0.1 % (0.0-0.8); Hematocrit 35.5 VOL% (35.7-47.0); Hemoglobin 11.2 GM/DL (12.0-16.0); Immature Granulocytes % 1.2 %; Immature Granulocytes Absolute 0.08 #; Lymphocytes # 0.2 10*3/uL (1.4-4.0); Lymphocytes % 3.1 % (21.3-54.2); Mean Corpuscular HGB Conc 31.5 GM/DL (32-36); Mean Corpuscular Volume 87.2 FL (87-102); Mean Platelet Volume 9.4 FL (9.6-12.0); Monocytes % 2.3 % (1.7-12.7); Neutrophils % 93.3 % (38.7-73.9); Platelet Count 145 T/CUMM (130-400); Red Blood Count 4.07 MC/CUMM (3.8-5.5); Red Cell Distribution Width 14.6 % (9.3-17.3); White Blood Count 6.8 T/CUMM (4-12)
[2020-12-21 06:44] LABS: Osmolality,Calculated 280.8 MOS/KG (273-304); Potassium 4.3 MMOL/L (3.5-5.1)
[2020-12-21 06:54] LABS: Band Neutrophils 1 % (0-10); Lymphocytes 3 % (20-55); Segmented Neutrophils 94 % (50-85); Total Cells Counted 100
[2020-12-21 06:55] LABS: Hypochromasia 1+; Microcytosis Slight
[2020-12-21 06:56] LABS: Platelet Estimate Adequate
[2020-12-21] MEDS: BUDESONIDE 0.5 MG/2 ML NEB RESP TX SCH ×2 (07:35→19:38)
[2020-12-21] MEDS: ALBUTEROL/IPRATROPIUM 3 ML NEB RESP TX SCH ×4 (07:35→19:38)
[2020-12-21] MEDS: MIDAZOLAM 100 MG in SODIUM CHLORIDE 0.9% 80 ML IV PRN (07:45)
[2020-12-21] MEDS: PANTOPRAZOLE 40 MG VIAL IV SCH (09:23)
[2020-12-21] MEDS: LACTOBACILLUS ACIDOPHILUS/BULGARICUS CAPLET PO SCH (09:23)
[2020-12-21] MEDS: ASPIRIN 325 MG TABLET PO SCH (09:23)
[2020-12-21] MEDS: ALUMINUM/MAGNES/SIMETH MAX STR 30 ML UDCUP PO SCH ×4 (09:23→22:31)
[2020-12-21] MEDS: CHOLESTYRAMINE 4 GM PACK PO SCH ×2 (09:23→20:42)
[2020-12-21] MEDS: acetaZOLAMIDE 250 MG TABLET PO SCH (09:24)
[2020-12-21] MEDS: ESCITALOPRAM 10 MG TABLET PO SCH (09:24)
[2020-12-21] MEDS: MONTELUKAST 10 MG TABLET PO SCH (09:24)
[2020-12-21] MEDS: NICOTINE 21 MG/24 HR PATCH TRANSDERM SCH (09:25)
[2020-12-21] MEDS: [UNRECOGNIZED DRUG - OTHER] PO SCH (10:34)
[2020-12-21] MEDS ORDERED: GENTAMICIN INJ 100 MG in PREMIX 1 EACH IV SCH (11:00)
[2020-12-21] MEDS: ENOXAPARIN 40 MG/0.4 ML SYRINGE SUBCUT SCH (12:57)
[2020-12-21] MEDS: NEBIVOLOL 5 MG TABLET PO SCH (13:13)
[2020-12-21] MEDS: VANCOMYCIN INJ 1,250 MG in SODIUM CHLORIDE 0.9% 250 ML IV SCH (15:39)
[2020-12-21] MEDS: THEOPHYLLINE ER 300 MG TABLET PO SCH (20:42)
[2020-12-21] MEDS: ATORVASTATIN 10 MG TABLET PO SCH (20:42)
[2020-12-21] MEDS ORDERED: ZINC OXIDE TOP PRN (21:04)
[2020-12-21] MEDS ORDERED: LIDOCAINE TOP PRN (21:04)
[2020-12-21] MEDS ORDERED: ZALEPLON 5 MG CAPSULE PO PRN (23:45)
[2020-12-22] MEDS: guaiFENesin 200 MG/10 ML UDCUP PO SCH ×4 (00:05→17:40)
[2020-12-22] MEDS: ONDANSETRON 4 MG/2 ML VIAL IV PRN (00:21)
[2020-12-22] MEDS: MORPHINE 4 MG/1 ML VIAL IV PRN ×2 (00:21→22:19)
[2020-12-22] MEDS: methylPREDNISolone SOD SUC 40 MG/1 ML VIAL IV SCH ×3 (00:53→16:37)
[2020-12-22] MEDS: ALBUTEROL/IPRATROPIUM 3 ML NEB RESP TX SCH ×5 (02:51→20:23)
[2020-12-22] MEDS: VANCOMYCIN INJ 1,250 MG in SODIUM CHLORIDE 0.9% 250 ML IV SCH ×2 (02:57→15:01)
[2020-12-22 04:12] LABS: Allen Test Positive
[2020-12-22 04:13] LABS: ABG Base Excess -0.3 MMOL/L (-2.5-2.5); ABG HCO3 24.1 MMOL/L (20-26); ABG Oxygen Saturation 96.2 % (95-100); ABG PCO2 35.3 MM HG (35-48); ABG PH 7.431 (7.35-7.45); ABG PO2 77.4 MM HG (80-95); ABG TCO2 20.6 MMOL/L (23-27)
[2020-12-22 05:08] LABS: Basophils % 0.4 % (0.0-0.8); Hematocrit 38.2 VOL% (35.7-47.0); Hemoglobin 12.1 GM/DL (12.0-16.0); Immature Granulocytes % 2.9 %; Immature Granulocytes Absolute 0.23 #; Lymphocytes # 0.2 10*3/uL (1.4-4.0); Lymphocytes % 2.1 % (21.3-54.2); Mean Corpuscular HGB Conc 31.7 GM/DL (32-36); Mean Corpuscular Volume 87.8 FL (87-102); Mean Platelet Volume 9.5 FL (9.6-12.0); Monocytes % 2.1 % (1.7-12.7); NRBC # 0.02 10*3/uL; Neutrophils % 92.5 % (38.7-73.9); Platelet Count 143 T/CUMM (130-400); Red Blood Count 4.35 MC/CUMM (3.8-5.5); Red Cell Distribution Width 14.9 % (9.3-17.3); White Blood Count 7.9 T/CUMM (4-12)
[2020-12-22 05:24] LABS: Calcium 7.8 MG/DL (8.5-10.1); Potassium 4.3 MMOL/L (3.5-5.1)
[2020-12-22 05:33] LABS: Lymphocytes 2 % (20-55); Platelet Estimate Normal; Segmented Neutrophils 96 % (50-85); Total Cells Counted 100
[2020-12-22] MEDS: LEVOTHYROXINE 50 MCG TABLET PO SCH (06:04)
[2020-12-22] MEDS: INSULIN REGULAR 100 UNIT/ML SUBCUT SCH ×3 (06:40→18:22)
[2020-12-22] MEDS: BUDESONIDE 0.5 MG/2 ML NEB RESP TX SCH ×2 (07:25→20:23)
[2020-12-22] MEDS: PANTOPRAZOLE 40 MG VIAL IV SCH ×3 (08:23→22:19)
[2020-12-22] MEDS: THEOPHYLLINE ER 300 MG TABLET PO SCH ×2 (08:26→22:19)
[2020-12-22] MEDS: LACTOBACILLUS ACIDOPHILUS/BULGARICUS CAPLET PO SCH (08:26)
[2020-12-22] MEDS: MONTELUKAST 10 MG TABLET PO SCH (08:27)
[2020-12-22] MEDS: ESCITALOPRAM 10 MG TABLET PO SCH (08:27)
[2020-12-22] MEDS: ASPIRIN 325 MG TABLET PO SCH (08:27)
[2020-12-22] MEDS: ALPRAZolam 0.25 MG TABLET PO PRN ×2 (08:27→17:40)
[2020-12-22] MEDS: acetaZOLAMIDE 250 MG TABLET PO SCH (08:27)
[2020-12-22] MEDS: NICOTINE 21 MG/24 HR PATCH TRANSDERM SCH (08:28)
[2020-12-22] MEDS: [UNRECOGNIZED DRUG - OTHER] PO SCH (08:28)
[2020-12-22] MEDS: ALUMINUM/MAGNES/SIMETH MAX STR 30 ML UDCUP PO SCH ×4 (08:29→22:19)
[2020-12-22] MEDS: CHOLESTYRAMINE 4 GM PACK PO SCH ×2 (08:30→22:19)
[2020-12-22] MEDS: ENOXAPARIN 40 MG/0.4 ML SYRINGE SUBCUT SCH (10:05)
[2020-12-22] MEDS: ACETAMINOPHEN 325 MG TABLET PO PRN (15:03)
[2020-12-22] MEDS: ATORVASTATIN 10 MG TABLET PO SCH (22:19)
[2020-12-23] MEDS: ALBUTEROL/IPRATROPIUM 3 ML NEB RESP TX SCH ×5 (00:30→20:17)
[2020-12-23] MEDS: INSULIN REGULAR 100 UNIT/ML SUBCUT SCH ×4 (01:21→19:38)
[2020-12-23] MEDS: methylPREDNISolone SOD SUC 40 MG/1 ML VIAL IV SCH ×3 (01:24→18:19)
[2020-12-23] MEDS: guaiFENesin 200 MG/10 ML UDCUP PO SCH ×4 (01:24→18:20)
[2020-12-23 03:14] LABS: ABG Base Excess 0.3 MMOL/L (-2.5-2.5); ABG HCO3 24.6 MMOL/L (20-26); ABG Oxygen Saturation 95.4 % (95-100); ABG PCO2 38.4 MM HG (35-48); ABG PH 7.415 (7.35-7.45); ABG PO2 73.8 MM HG (80-95); ABG TCO2 21.4 MMOL/L (23-27); Allen Test Positive
[2020-12-23] MEDS: VANCOMYCIN INJ 1,250 MG in SODIUM CHLORIDE 0.9% 250 ML IV SCH ×2 (04:04→18:20)
[2020-12-23] MEDS: LEVOTHYROXINE 50 MCG TABLET PO SCH (05:43)
[2020-12-23 06:55] LABS: Basophils % 0.1 % (0.0-0.8); Hematocrit 40.4 VOL% (35.7-47.0); Hemoglobin 12.9 GM/DL (12.0-16.0); Immature Granulocytes % 3.3 %; Immature Granulocytes Absolute 0.27 #; Lymphocytes # 0.7 10*3/uL (1.4-4.0); Lymphocytes % 8.1 % (21.3-54.2); Mean Corpuscular HGB Conc 31.9 GM/DL (32-36); Mean Corpuscular Volume 87.3 FL (87-102); Mean Platelet Volume 10.5 FL (9.6-12.0); NRBC # 0.07 10*3/uL; Neutrophils % 83.5 % (38.7-73.9); Platelet Count 133 T/CUMM (130-400); Red Blood Count 4.63 MC/CUMM (3.8-5.5); Red Cell Distribution Width 15.1 % (9.3-17.3); White Blood Count 8.2 T/CUMM (4-12)
[2020-12-23 07:02] LABS: Osmolality,Calculated 277.4 MOS/KG (273-304); Potassium 3.5 MMOL/L (3.5-5.1)
[2020-12-23 07:38] LABS: Lymphocytes 6 % (20-55); Segmented Neutrophils 89 % (50-85); Total Cells Counted 100
[2020-12-23] MEDS: BUDESONIDE 0.5 MG/2 ML NEB RESP TX SCH ×2 (08:46→20:17)
[2020-12-23] MEDS: ALUMINUM/MAGNES/SIMETH MAX STR 30 ML UDCUP PO SCH ×4 (10:13→22:09)
[2020-12-23] MEDS: MONTELUKAST 10 MG TABLET PO SCH (10:14)
[2020-12-23] MEDS: ESCITALOPRAM 10 MG TABLET PO SCH (10:14)
[2020-12-23] MEDS: ENOXAPARIN 40 MG/0.4 ML SYRINGE SUBCUT SCH (10:14)
[2020-12-23] MEDS: THEOPHYLLINE ER 300 MG TABLET PO SCH ×2 (10:14→22:03)
[2020-12-23] MEDS: acetaZOLAMIDE 250 MG TABLET PO SCH (10:14)
[2020-12-23] MEDS: ASPIRIN 325 MG TABLET PO SCH (10:14)
[2020-12-23] MEDS: CHOLESTYRAMINE 4 GM PACK PO SCH ×2 (10:17→22:08)
[2020-12-23] MEDS: NICOTINE 21 MG/24 HR PATCH TRANSDERM SCH (10:18)
[2020-12-23] MEDS: PANTOPRAZOLE 40 MG VIAL IV SCH ×2 (10:49→22:29)
[2020-12-23] MEDS: [UNRECOGNIZED DRUG - OTHER] PO SCH (10:50)
[2020-12-23] MEDS: ATORVASTATIN 10 MG TABLET PO SCH (22:03)
[2020-12-23] MEDS: ALPRAZolam 0.25 MG TABLET PO PRN (22:04)
[2020-12-24] MEDS: guaiFENesin 200 MG/10 ML UDCUP PO SCH ×5 (00:44→17:27)
[2020-12-24] MEDS: methylPREDNISolone SOD SUC 40 MG/1 ML VIAL IV SCH ×3 (00:46→16:42)
[2020-12-24] MEDS: VANCOMYCIN INJ 1,250 MG in SODIUM CHLORIDE 0.9% 250 ML IV SCH ×2 (03:15→16:40)
[2020-12-24] MEDS: INSULIN REGULAR 100 UNIT/ML SUBCUT SCH ×4 (03:30→17:26)
[2020-12-24 04:58] LABS: ABG Base Excess 1.5 MMOL/L (-2.5-2.5); ABG HCO3 25.7 MMOL/L (20-26); ABG Oxygen Saturation 96.5 % (95-100); ABG PCO2 40.2 MM HG (35-48); ABG TCO2 22.9 MMOL/L (23-27)
[2020-12-24] MEDS: ALBUTEROL/IPRATROPIUM 3 ML NEB RESP TX SCH ×6 (05:42→23:00)
[2020-12-24 05:43] LABS: Basophils % 0.2 % (0.0-0.8); Hematocrit 39.9 VOL% (35.7-47.0); Hemoglobin 13.2 GM/DL (12.0-16.0); Immature Granulocytes % 2.4 %; Immature Granulocytes Absolute 0.15 #; Lymphocytes # 0.2 10*3/uL (1.4-4.0); Lymphocytes % 3.9 % (21.3-54.2); Mean Corpuscular HGB Conc 33.1 GM/DL (32-36); Mean Corpuscular Volume 84.2 FL (87-102); Mean Platelet Volume 9.5 FL (9.6-12.0); Monocytes % 2.6 % (1.7-12.7); NRBC # 0.05 10*3/uL; Neutrophils % 90.9 % (38.7-73.9); Platelet Count 115 T/CUMM (130-400); Red Blood Count 4.74 MC/CUMM (3.8-5.5); Red Cell Distribution Width 14.9 % (9.3-17.3); White Blood Count 6.1 T/CUMM (4-12)
[2020-12-24 05:55] LABS: Calcium 8.3 MG/DL (8.5-10.1); Osmolality,Calculated 271.8 MOS/KG (273-304); Potassium 3.7 MMOL/L (3.5-5.1)
[2020-12-24 06:10] LABS: Lymphocytes 4 % (20-55); Platelet Estimate Normal; Segmented Neutrophils 93 % (50-85); Total Cells Counted 100
[2020-12-24] MEDS: LEVOTHYROXINE 50 MCG TABLET PO SCH (07:23)
[2020-12-24] MEDS: BUDESONIDE 0.5 MG/2 ML NEB RESP TX SCH ×2 (07:53→19:10)
[2020-12-24] MEDS: CHOLESTYRAMINE 4 GM PACK PO SCH ×3 (09:05→22:16)
[2020-12-24] MEDS: NICOTINE 21 MG/24 HR PATCH TRANSDERM SCH (09:05)
[2020-12-24] MEDS: ASPIRIN 325 MG TABLET PO SCH (09:06)
[2020-12-24] MEDS: ESCITALOPRAM 10 MG TABLET PO SCH (09:06)
[2020-12-24] MEDS: acetaZOLAMIDE 250 MG TABLET PO SCH (09:06)
[2020-12-24] MEDS: MONTELUKAST 10 MG TABLET PO SCH (09:06)
[2020-12-24] MEDS: THEOPHYLLINE ER 300 MG TABLET PO SCH ×2 (09:06→16:42)
[2020-12-24] MEDS: ALUMINUM/MAGNES/SIMETH MAX STR 30 ML UDCUP PO SCH ×5 (09:07→22:17)
[2020-12-24] MEDS: PANTOPRAZOLE 40 MG VIAL IV SCH (09:07)
[2020-12-24] MEDS: ENOXAPARIN 40 MG/0.4 ML SYRINGE SUBCUT SCH ×2 (09:07→09:39)
[2020-12-24] MEDS: [UNRECOGNIZED DRUG - OTHER] PO SCH (09:08)
[2020-12-24] MEDS ORDERED: amLODIPine 5 MG TABLET PO ONE (10:41)
[2020-12-24] MEDS ORDERED: THEOPHYLLINE ER 100 MG TABLET PO SCH (17:00)
[2020-12-24] MEDS: traMADol 50 MG TABLET PO PRN (22:17)
[2020-12-24] MEDS: ATORVASTATIN 10 MG TABLET PO SCH (22:17)
[2020-12-24] MEDS: ALPRAZolam 0.25 MG TABLET PO PRN (22:18)
[2020-12-25] MEDS: guaiFENesin 200 MG/10 ML UDCUP PO SCH ×5 (01:37→23:25)
[2020-12-25] MEDS: INSULIN REGULAR 100 UNIT/ML SUBCUT SCH ×4 (01:49→18:14)
[2020-12-25 03:42] LABS: ABG Base Excess 1.7 MMOL/L (-2.5-2.5); ABG HCO3 25.9 MMOL/L (20-26); ABG PCO2 35.8 MM HG (35-48); ABG PH 7.456 (7.35-7.45); ABG PO2 93.6 MM HG (80-95); ABG TCO2 22.1 MMOL/L (23-27); Allen Test Positive
[2020-12-25] MEDS: ONDANSETRON 4 MG/2 ML VIAL IV PRN (05:29)
[2020-12-25] MEDS: methylPREDNISolone SOD SUC 40 MG/1 ML VIAL IV SCH ×3 (05:32→23:33)
[2020-12-25] MEDS: PANTOPRAZOLE 40 MG VIAL IV SCH ×3 (05:37→23:29)
[2020-12-25] MEDS: VANCOMYCIN INJ 1,250 MG in SODIUM CHLORIDE 0.9% 250 ML IV SCH ×2 (05:38→16:17)
[2020-12-25] MEDS: LEVOTHYROXINE 50 MCG TABLET PO SCH (06:03)
[2020-12-25] MEDS: traMADol 50 MG TABLET PO PRN (06:04)
[2020-12-25] MEDS: amLODIPine 5 MG TABLET PO SCH ×2 (06:59→09:08)
[2020-12-25] MEDS: ALBUTEROL/IPRATROPIUM 3 ML NEB RESP TX SCH ×5 (07:58→23:00)
[2020-12-25] MEDS: BUDESONIDE 0.5 MG/2 ML NEB RESP TX SCH ×2 (07:58→20:21)
[2020-12-25] MEDS: ESCITALOPRAM 10 MG TABLET PO SCH (09:06)
[2020-12-25] MEDS: acetaZOLAMIDE 250 MG TABLET PO SCH (09:07)
[2020-12-25] MEDS: MONTELUKAST 10 MG TABLET PO SCH (09:08)
[2020-12-25] MEDS: NEBIVOLOL 5 MG TABLET PO SCH (09:08)
[2020-12-25] MEDS: ASPIRIN 325 MG TABLET PO SCH (09:08)
[2020-12-25] MEDS: ALUMINUM/MAGNES/SIMETH MAX STR 30 ML UDCUP PO SCH ×3 (09:09→15:43)
[2020-12-25] MEDS: THEOPHYLLINE ER 300 MG TABLET PO SCH ×2 (09:09→16:16)
[2020-12-25] MEDS: CHOLESTYRAMINE 4 GM PACK PO SCH (09:09)
[2020-12-25] MEDS: PHENAZOPYRIDINE 95 MG TABLET PO SCH ×2 (09:09→16:16)
[2020-12-25] MEDS: NICOTINE 21 MG/24 HR PATCH TRANSDERM SCH (09:11)
[2020-12-25] MEDS: ENOXAPARIN 40 MG/0.4 ML SYRINGE SUBCUT SCH (09:47)
[2020-12-25] MEDS: [UNRECOGNIZED DRUG - OTHER] PO SCH (09:56)
[2020-12-25] MEDS: ALPRAZolam 0.25 MG TABLET PO PRN (23:20)
[2020-12-25] MEDS: ATORVASTATIN 10 MG TABLET PO SCH (23:21)
[2020-12-26] MEDS: CHOLESTYRAMINE 4 GM PACK PO SCH ×3 (00:11→23:02)
[2020-12-26] MEDS: ALUMINUM/MAGNES/SIMETH MAX STR 30 ML UDCUP PO SCH ×5 (00:11→23:02)
[2020-12-26] MEDS: INSULIN REGULAR 100 UNIT/ML SUBCUT SCH ×5 (00:12→23:27)
[2020-12-26] MEDS: VANCOMYCIN INJ 1,250 MG in SODIUM CHLORIDE 0.9% 250 ML IV SCH ×3 (04:07→23:03)
[2020-12-26 05:20] LABS: Basophils % 0.2 % (0.0-0.8); Hematocrit 39.3 VOL% (35.7-47.0); Hemoglobin 12.2 GM/DL (12.0-16.0); Immature Granulocytes Absolute 0.09 #; Lymphocytes # 0.3 10*3/uL (1.4-4.0); Lymphocytes % 6.5 % (21.3-54.2); Mean Corpuscular Volume 87.9 FL (87-102); Mean Platelet Volume 9.7 FL (9.6-12.0); Monocytes % 4.5 % (1.7-12.7); Neutrophils % 86.8 % (38.7-73.9); Platelet Count 103 T/CUMM (130-400); Red Blood Count 4.47 MC/CUMM (3.8-5.5); Red Cell Distribution Width 15.1 % (9.3-17.3); White Blood Count 4.4 T/CUMM (4-12)
[2020-12-26 05:40] LABS: Calcium 8.1 MG/DL (8.5-10.1); Osmolality,Calculated 277.4 MOS/KG (273-304); Potassium 3.1 MMOL/L (3.5-5.1)
[2020-12-26] MEDS: LEVOTHYROXINE 50 MCG TABLET PO SCH (06:34)
[2020-12-26] MEDS: guaiFENesin 200 MG/10 ML UDCUP PO SCH ×4 (06:35→23:26)
[2020-12-26] MEDS: ALBUTEROL/IPRATROPIUM 3 ML NEB RESP TX SCH ×5 (07:20→23:00)
[2020-12-26] MEDS: BUDESONIDE 0.5 MG/2 ML NEB RESP TX SCH ×2 (07:20→19:56)
[2020-12-26] MEDS ORDERED: POTASSIUM CHLORIDE 20 MEQ TABLET PO ONE ×2 (07:57→16:52)
[2020-12-26] MEDS: [UNRECOGNIZED DRUG - OTHER] PO SCH (09:14)
[2020-12-26] MEDS: methylPREDNISolone SOD SUC 40 MG/1 ML VIAL IV SCH (09:15)
[2020-12-26] MEDS: NICOTINE 21 MG/24 HR PATCH TRANSDERM SCH (09:16)
[2020-12-26] MEDS: amLODIPine 5 MG TABLET PO SCH (09:34)
[2020-12-26] MEDS: MONTELUKAST 10 MG TABLET PO SCH (09:34)
[2020-12-26] MEDS: ESCITALOPRAM 10 MG TABLET PO SCH (09:35)
[2020-12-26] MEDS: ASPIRIN 325 MG TABLET PO SCH (09:35)
[2020-12-26] MEDS: acetaZOLAMIDE 250 MG TABLET PO SCH (09:35)
[2020-12-26] MEDS: PHENAZOPYRIDINE 95 MG TABLET PO SCH ×2 (09:35→17:35)
[2020-12-26] MEDS: methylPREDNISolone 4 MG TABLET PO SCH (09:35)
[2020-12-26] MEDS: THEOPHYLLINE ER 300 MG TABLET PO SCH ×2 (09:35→17:36)
[2020-12-26] MEDS: NEBIVOLOL 5 MG TABLET PO SCH (09:36)
[2020-12-26] MEDS: PANTOPRAZOLE 40 MG VIAL IV SCH (09:36)
[2020-12-26] MEDS: ENOXAPARIN 40 MG/0.4 ML SYRINGE SUBCUT SCH (09:36)
[2020-12-26] MEDS: OMEPRAZOLE ODT 20 MG TABLET PO SCH (17:35)
[2020-12-26] MEDS: ONDANSETRON 4 MG/2 ML VIAL IV PRN (21:00)
[2020-12-26] MEDS: ATORVASTATIN 10 MG TABLET PO SCH (23:02)
[2020-12-26] MEDS: ALPRAZolam 0.25 MG TABLET PO PRN (23:19)
[2020-12-27 02:03] LABS: Bacteria,Urine Occasional /HPF (Few); Bilirubin,Urine Negative (Negative); Blood, Urine Small mg/dL (Negative); Glucose,Urine (UA) Negative (Negative); Ketones,Urine Negative (Negative); Nitrite,Urine Positive (Negative); Protein,Urine Negative; RBC,Urine 3 /HPF (0-4); Squamous Epithelial Cell,Urine Occasional /HPF (0-10); Urine Appearance CLEAR (Clear); Urine Color Amber (Yellow); Urine Specific Gravity 1.003 (1.001-1.035); Urine Urobilinogen < 2.0 EU/DL (0.2-1.0)
[2020-12-27] MEDS: LEVOTHYROXINE 50 MCG TABLET PO SCH (06:17)
[2020-12-27] MEDS: guaiFENesin 200 MG/10 ML UDCUP PO SCH ×3 (06:17→18:05)
[2020-12-27] MEDS: OMEPRAZOLE ODT 20 MG TABLET PO SCH ×2 (06:17→18:05)
[2020-12-27] MEDS: INSULIN REGULAR 100 UNIT/ML SUBCUT SCH ×3 (06:48→17:34)
[2020-12-27] MEDS: BUDESONIDE 0.5 MG/2 ML NEB RESP TX SCH ×2 (07:24→18:26)
[2020-12-27] MEDS: ALBUTEROL/IPRATROPIUM 3 ML NEB RESP TX SCH ×3 (07:24→18:26)
[2020-12-27] MEDS: ALUMINUM/MAGNES/SIMETH MAX STR 30 ML UDCUP PO SCH ×4 (08:55→20:52)
[2020-12-27] MEDS: NICOTINE 21 MG/24 HR PATCH TRANSDERM SCH (08:55)
[2020-12-27] MEDS: [UNRECOGNIZED DRUG - OTHER] PO SCH (08:56)
[2020-12-27] MEDS: methylPREDNISolone 4 MG TABLET PO SCH (09:18)
[2020-12-27] MEDS: PHENAZOPYRIDINE 95 MG TABLET PO SCH ×2 (09:18→16:37)
[2020-12-27] MEDS: acetaZOLAMIDE 250 MG TABLET PO SCH (09:19)
[2020-12-27] MEDS: ESCITALOPRAM 10 MG TABLET PO SCH (09:19)
[2020-12-27] MEDS: THEOPHYLLINE ER 300 MG TABLET PO SCH ×2 (09:19→16:37)
[2020-12-27] MEDS: amLODIPine 5 MG TABLET PO SCH (09:19)
[2020-12-27] MEDS: NEBIVOLOL 5 MG TABLET PO SCH (09:19)
[2020-12-27] MEDS: CHOLESTYRAMINE 4 GM PACK PO SCH ×2 (09:19→20:51)
[2020-12-27] MEDS: ASPIRIN 325 MG TABLET PO SCH (09:19)
[2020-12-27] MEDS: MONTELUKAST 10 MG TABLET PO SCH (09:19)
[2020-12-27] MEDS: ENOXAPARIN 40 MG/0.4 ML SYRINGE SUBCUT SCH (09:32)
[2020-12-27] MEDS: ALPRAZolam 0.25 MG TABLET PO PRN ×2 (16:37→20:52)
[2020-12-27] MEDS: VANCOMYCIN INJ 1,250 MG in SODIUM CHLORIDE 0.9% 250 ML IV SCH (16:37)
[2020-12-27] MEDS: ATORVASTATIN 10 MG TABLET PO SCH (20:52)
[2020-12-28] MEDS: INSULIN REGULAR 100 UNIT/ML SUBCUT SCH ×4 (00:28→18:03)
[2020-12-28] MEDS: guaiFENesin 200 MG/10 ML UDCUP PO SCH ×5 (00:28→23:50)
[2020-12-28] MEDS: ALBUTEROL/IPRATROPIUM 3 ML NEB RESP TX SCH ×6 (03:08→23:55)
[2020-12-28] MEDS: LEVOTHYROXINE 50 MCG TABLET PO SCH (05:30)
[2020-12-28] MEDS: OMEPRAZOLE ODT 20 MG TABLET PO SCH ×2 (05:30→17:34)
[2020-12-28] MEDS: BUDESONIDE 0.5 MG/2 ML NEB RESP TX SCH ×2 (08:00→19:33)
[2020-12-28] MEDS ORDERED: ALPRAZolam 0.5 MG TABLET PO PRN (08:03)
[2020-12-28] MEDS: NICOTINE 21 MG/24 HR PATCH TRANSDERM SCH (09:07)
[2020-12-28] MEDS: ALUMINUM/MAGNES/SIMETH MAX STR 30 ML UDCUP PO SCH ×4 (09:07→21:38)
[2020-12-28] MEDS: CHOLESTYRAMINE 4 GM PACK PO SCH ×2 (09:07→21:38)
[2020-12-28] MEDS: THEOPHYLLINE ER 300 MG TABLET PO SCH ×2 (09:07→17:32)
[2020-12-28] MEDS: PHENAZOPYRIDINE 95 MG TABLET PO SCH ×2 (09:10→17:32)
[2020-12-28] MEDS: methylPREDNISolone 4 MG TABLET PO SCH (09:10)
[2020-12-28] MEDS: NEBIVOLOL 5 MG TABLET PO SCH (09:10)
[2020-12-28] MEDS: ESCITALOPRAM 10 MG TABLET PO SCH (09:10)
[2020-12-28] MEDS: MONTELUKAST 10 MG TABLET PO SCH (09:10)
[2020-12-28] MEDS: ASPIRIN 325 MG TABLET PO SCH (09:11)
[2020-12-28] MEDS: amLODIPine 5 MG TABLET PO SCH (09:11)
[2020-12-28] MEDS: acetaZOLAMIDE 250 MG TABLET PO SCH ×2 (09:11→09:15)
[2020-12-28] MEDS: [UNRECOGNIZED DRUG - OTHER] PO SCH (09:30)
[2020-12-28] MEDS: ALPRAZolam 0.5 MG TABLET PO SCH ×2 (09:30→21:38)
[2020-12-28] MEDS: ENOXAPARIN 40 MG/0.4 ML SYRINGE SUBCUT SCH (10:28)
[2020-12-28] MEDS: VANCOMYCIN INJ 1,250 MG in SODIUM CHLORIDE 0.9% 250 ML IV SCH (10:28)
[2020-12-28] MEDS: ATORVASTATIN 10 MG TABLET PO SCH (21:38)
[2020-12-29] MEDS: INSULIN REGULAR 100 UNIT/ML SUBCUT SCH ×4 (00:05→17:54)
[2020-12-29] MEDS: VANCOMYCIN INJ 1,250 MG in SODIUM CHLORIDE 0.9% 250 ML IV SCH ×2 (04:22→23:07)
[2020-12-29] MEDS: guaiFENesin 200 MG/10 ML UDCUP PO SCH ×3 (06:20→17:12)
[2020-12-29] MEDS: OMEPRAZOLE ODT 20 MG TABLET PO SCH ×2 (06:22→17:48)
[2020-12-29] MEDS: LEVOTHYROXINE 50 MCG TABLET PO SCH (06:23)
[2020-12-29] MEDS: BUDESONIDE 0.5 MG/2 ML NEB RESP TX SCH ×2 (07:20→19:40)
[2020-12-29] MEDS: ALBUTEROL/IPRATROPIUM 3 ML NEB RESP TX SCH ×4 (07:20→19:40)
[2020-12-29] MEDS: ALUMINUM/MAGNES/SIMETH MAX STR 30 ML UDCUP PO SCH ×4 (08:02→21:40)
[2020-12-29] MEDS: NEBIVOLOL 5 MG TABLET PO SCH (08:46)
[2020-12-29] MEDS: ASPIRIN 325 MG TABLET PO SCH (08:47)
[2020-12-29] MEDS: methylPREDNISolone 4 MG TABLET PO SCH (08:47)
[2020-12-29] MEDS: ESCITALOPRAM 10 MG TABLET PO SCH (08:47)
[2020-12-29] MEDS: PHENAZOPYRIDINE 95 MG TABLET PO SCH ×2 (08:47→17:10)
[2020-12-29] MEDS: amLODIPine 5 MG TABLET PO SCH (08:47)
[2020-12-29] MEDS: THEOPHYLLINE ER 300 MG TABLET PO SCH ×2 (08:47→17:10)
[2020-12-29] MEDS: acetaZOLAMIDE 250 MG TABLET PO SCH (08:48)
[2020-12-29] MEDS: CHOLESTYRAMINE 4 GM PACK PO SCH ×2 (08:48→21:39)
[2020-12-29] MEDS: NICOTINE 21 MG/24 HR PATCH TRANSDERM SCH (08:48)
[2020-12-29] MEDS: ALPRAZolam 0.5 MG TABLET PO SCH ×2 (08:48→21:39)
[2020-12-29] MEDS: [UNRECOGNIZED DRUG - OTHER] PO SCH (08:48)
[2020-12-29] MEDS: MONTELUKAST 10 MG TABLET PO SCH (10:06)
[2020-12-29] MEDS: ENOXAPARIN 40 MG/0.4 ML SYRINGE SUBCUT SCH (10:07)
[2020-12-29] MEDS: ONDANSETRON 4 MG/2 ML VIAL IV PRN (17:48)
[2020-12-29] MEDS: ATORVASTATIN 10 MG TABLET PO SCH (21:40)
[2020-12-30] MEDS: INSULIN REGULAR 100 UNIT/ML SUBCUT SCH ×4 (03:27→18:13)
[2020-12-30] MEDS: guaiFENesin 200 MG/10 ML UDCUP PO SCH ×4 (03:59→17:19)
[2020-12-30 07:03] LABS: Basophils % 0.3 % (0.0-0.8); Eosinophils # 0.1 10*3/uL (0.0-0.87); Eosinophils % 1.5 % (0.00-10.9); Hematocrit 39.1 VOL% (35.7-47.0); Hemoglobin 12.9 GM/DL (12.0-16.0); Immature Granulocytes % 2.5 %; Immature Granulocytes Absolute 0.08 #; Lymphocytes # 0.5 10*3/uL (1.4-4.0); Lymphocytes % 14.2 % (21.3-54.2); Mean Corpuscular Volume 86.3 FL (87-102); Mean Platelet Volume 10.2 FL (9.6-12.0); Monocytes % 6.8 % (1.7-12.7); Neutrophils % 74.7 % (38.7-73.9); Platelet Count 105 T/CUMM (130-400); Red Blood Count 4.53 MC/CUMM (3.8-5.5); Red Cell Distribution Width 14.8 % (9.3-17.3); White Blood Count 3.2 T/CUMM (4-12)
[2020-12-30 07:23] LABS: Calcium 7.9 MG/DL (8.5-10.1); Osmolality,Calculated 275.3 MOS/KG (273-304)
[2020-12-30 07:28] LABS: Potassium 2.3 MMOL/L (3.5-5.1)
[2020-12-30] MEDS: ALBUTEROL/IPRATROPIUM 3 ML NEB RESP TX SCH ×5 (07:34→19:03)
[2020-12-30] MEDS: BUDESONIDE 0.5 MG/2 ML NEB RESP TX SCH ×2 (07:34→19:03)
[2020-12-30] MEDS: ALUMINUM/MAGNES/SIMETH MAX STR 30 ML UDCUP PO SCH ×4 (07:54→22:02)
[2020-12-30] MEDS: OMEPRAZOLE ODT 20 MG TABLET PO SCH ×2 (08:04→18:12)
[2020-12-30] MEDS: LEVOTHYROXINE 50 MCG TABLET PO SCH (08:04)
[2020-12-30] MEDS: methylPREDNISolone 4 MG TABLET PO SCH (08:50)
[2020-12-30] MEDS: ASPIRIN 325 MG TABLET PO SCH (08:50)
[2020-12-30] MEDS: ALPRAZolam 0.5 MG TABLET PO SCH ×2 (08:51→22:01)
[2020-12-30] MEDS: THEOPHYLLINE ER 300 MG TABLET PO SCH ×2 (08:51→17:18)
[2020-12-30] MEDS: CHOLESTYRAMINE 4 GM PACK PO SCH ×2 (08:51→22:02)
[2020-12-30] MEDS: ESCITALOPRAM 10 MG TABLET PO SCH (08:51)
[2020-12-30] MEDS: amLODIPine 5 MG TABLET PO SCH (08:51)
[2020-12-30] MEDS: MONTELUKAST 10 MG TABLET PO SCH (08:51)
[2020-12-30] MEDS: NEBIVOLOL 5 MG TABLET PO SCH (08:51)
[2020-12-30] MEDS: PHENAZOPYRIDINE 95 MG TABLET PO SCH ×2 (08:52→17:19)
[2020-12-30] MEDS: NICOTINE 21 MG/24 HR PATCH TRANSDERM SCH (08:52)
[2020-12-30] MEDS: [UNRECOGNIZED DRUG - OTHER] PO SCH (09:44)
[2020-12-30] MEDS: acetaZOLAMIDE 250 MG TABLET PO SCH (09:44)
[2020-12-30] MEDS ORDERED: POTASSIUM CHLORIDE RIDER 10 MEQ in PREMIX 1 EACH IV PRN (10:06)
[2020-12-30] MEDS: ENOXAPARIN 40 MG/0.4 ML SYRINGE SUBCUT SCH (10:18)
[2020-12-30] MEDS: POTASSIUM CHLORIDE 20 MEQ TABLET PO PRN ×4 (10:18→18:12)
[2020-12-30] MEDS: VANCOMYCIN INJ 1,250 MG in SODIUM CHLORIDE 0.9% 250 ML IV SCH ×2 (10:20→22:02)
[2020-12-30] MEDS: ACETAMINOPHEN 325 MG TABLET PO PRN (11:54)
[2020-12-30] MEDS: ATORVASTATIN 10 MG TABLET PO SCH (22:02)
[2020-12-31] MEDS: guaiFENesin 200 MG/10 ML UDCUP PO SCH ×3 (00:32→11:48)
[2020-12-31] MEDS: ALBUTEROL/IPRATROPIUM 3 ML NEB RESP TX SCH ×4 (00:53→14:16)
[2020-12-31] MEDS: INSULIN REGULAR 100 UNIT/ML SUBCUT SCH ×3 (01:50→11:36)
[2020-12-31 05:57] LABS: Basophils % 0.3 % (0.0-0.8); Eosinophils % 1.4 % (0.00-10.9); Hematocrit 40.6 VOL% (35.7-47.0); Hemoglobin 12.6 GM/DL (12.0-16.0); Immature Granulocytes % 2.7 %; Immature Granulocytes Absolute 0.08 #; Lymphocytes # 0.5 10*3/uL (1.4-4.0); Lymphocytes % 17.9 % (21.3-54.2); Mean Corpuscular Volume 89.6 FL (87-102); Mean Platelet Volume 9.8 FL (9.6-12.0); Monocytes % 7.6 % (1.7-12.7); Neutrophils % 70.1 % (38.7-73.9); Platelet Count 118 T/CUMM (130-400); Red Blood Count 4.53 MC/CUMM (3.8-5.5); White Blood Count 2.9 T/CUMM (4-12)
[2020-12-31 06:23] LABS: Eosinophils 1 % (0-10); Hypochromasia Slight; Lymphocytes 17 % (20-55); Microcytosis Slight; Platelet Estimate Decreased; Segmented Neutrophils 75 % (50-85); Total Cells Counted 100
[2020-12-31] MEDS: LEVOTHYROXINE 50 MCG TABLET PO SCH (06:32)
[2020-12-31] MEDS: OMEPRAZOLE ODT 20 MG TABLET PO SCH (06:32)
[2020-12-31 06:40] LABS: Alanine Aminotransferase 43 U/L (13-56); Albumin 2.6 G/DL (3.4-5.0); Alkaline Phosphatase 71 U/L (45-117); Aspartate Amino Transferase 20 U/L (0-37); Bilirubin,Total < 0.39 MG/DL (0.2-1.0); Blood Urea Nitrogen 3 MG/DL (7-18); Calcium 8.1 MG/DL (8.5-10.1); Carbon Dioxide 32 MMOL/L (21-32); Estimated Glom Filtration Rate 121 ML/MIN; Glucose 76 MG/DL (74-106); Osmolality,Calculated 276.3 MOS/KG (273-304); Sodium 141 MMOL/L (136-145); Thyroid Stimulating Hormone 0.659 uIU/ml (0.358-3.74); Total Protein 5.3 G/DL (6.4-8.2)
[2020-12-31] MEDS: ALUMINUM/MAGNES/SIMETH MAX STR 30 ML UDCUP PO SCH ×3 (07:56→16:10)
[2020-12-31] MEDS: BUDESONIDE 0.5 MG/2 ML NEB RESP TX SCH (08:02)
[2020-12-31] MEDS: [UNRECOGNIZED DRUG - OTHER] PO SCH (09:02)
[2020-12-31] MEDS: acetaZOLAMIDE 250 MG TABLET PO SCH (09:02)
[2020-12-31] MEDS: NICOTINE 21 MG/24 HR PATCH TRANSDERM SCH (09:02)
[2020-12-31] MEDS: VANCOMYCIN INJ 1,250 MG in SODIUM CHLORIDE 0.9% 250 ML IV SCH (09:03)
[2020-12-31] MEDS: ALPRAZolam 0.5 MG TABLET PO SCH (09:11)
[2020-12-31] MEDS: methylPREDNISolone 4 MG TABLET PO SCH (09:11)
[2020-12-31] MEDS: MONTELUKAST 10 MG TABLET PO SCH (09:11)
[2020-12-31] MEDS: NEBIVOLOL 5 MG TABLET PO SCH (09:11)
[2020-12-31] MEDS: THEOPHYLLINE ER 300 MG TABLET PO SCH ×2 (09:12→16:36)
[2020-12-31] MEDS: PHENAZOPYRIDINE 95 MG TABLET PO SCH ×2 (09:12→16:36)
[2020-12-31] MEDS: CHOLESTYRAMINE 4 GM PACK PO SCH (09:12)
[2020-12-31] MEDS: ESCITALOPRAM 10 MG TABLET PO SCH (09:12)
[2020-12-31] MEDS: ASPIRIN 325 MG TABLET PO SCH (09:12)
[2020-12-31] MEDS: amLODIPine 5 MG TABLET PO SCH (09:13)
[2020-12-31] MEDS: ENOXAPARIN 40 MG/0.4 ML SYRINGE SUBCUT SCH (09:46)
[2020-12-31 11:59] VITALS: BP 164/82
== END 2020-12-31 16:35 | DRG 207 ==
LOC: N.ED 07:34 → N.TELEN 11:09 → N.EDINP 11:12 → SUATTDRO 11:12 → N.TELEN 11:15 → N.ICU 12:27 → N.TELEN 12-16 13:07 → N.CC 12-19 01:38 → N.TELES 12-22 10:37
PROVIDERS: ADMIT Family Medicine; ATTEND Family Medicine